=== PATIENT | female | born 1955 | race Caucasian/White ===

== ENCOUNTER 2017-05-17 07:04 | Emergency (ER) | payer BC ==
[2017-05-17 07:25] VITALS: BP 124/50
--- NOTE | 2017-05-17 10:49 | UC ---
Ayo Nicole Nikita, scribed for Dayanara Romo DO on 05/17/17 at 0739 . Ear Complaint HPI - HPI Summary HPI Summary: This patient is a 62 year old F presenting to [facility] with a chief complaint of R ear pain since early this morning. The CC is described as sometimes sharp, feels like somethings in there, and non-radiating. The patient rates the pain 7/10 in severity. Symptoms aggravated by nothing. Symptoms alleviated by nothing. Patient reports intermittent sore throat, sinus congestion/bejarano/ pain since 2 days ago. Patient denies fever, chills, sweating, SOB, coughing, and abdominal pain. - History of Current Complaint Chief Complaint: UCEar Stated Complaint: EAR PAIN Time Seen by Provider: 05/17/17 07:14 Hx Obtained From: Patient Onset/Duration: Sudden Onset - Early this morning, Lasting Hours, Still Present Severity Initially: Moderate Severity Currently: Moderate Pain Intensity: 7 Pain Scale Used: 0-10 Numeric Aggravating Factors: Nothing Alleviating Factors: Nothing Associated Signs/Symptoms: Positive: URI Symptoms. Negative: Discharge, Hearing Loss, Foreign Body Sensation, Swelling @ - Allergies/Home Medications Allergies/Adverse Reactions: Allergies Allergy/AdvReac Type Severity Reaction Status Date / Time Penicillins Allergy Severe See Comment Verified 05/17/17 07:18 PMH/Surg Hx/FS Hx/Imm Hx Endocrine History: Diabetes Cardiovascular History: Hypertension Respiratory History: Asthma - Surgical History Surgical History: None Surgery Procedure, Year, and Place: TUBALIGATION. GALLBLADDER - Family History Known Family History: Positive: Unknown - Parents young. To her knowledge, no htn, dm, heart dz. - Social History Lives: With Family Alcohol Use: Occasionally Substance Use Type: None Smoking Status (MU): Never Smoked Tobacco Review of Systems Constitutional: Other - Denies fever, chills, sweating Skin: Negative Eyes: Negative ENT: Sore Throat, Ear Ache Respiratory: Other - Denies SOB, coughing Cardiovascular: Negative Gastrointestinal: Other - Denies abdominal pain Neurological: Headache - sinus All Other Systems Reviewed And Are Negative: Yes Physical Exam Triage Information Reviewed: Yes Vital Signs: Initial Vital Signs Temp 96.8 F 05/17/17 07:22 Pulse 70 05/17/17 07:22 Resp 16 05/17/17 07:22 BP 124/50 05/17/17 07:22 Pulse Ox 97 05/17/17 07:22 - Additional Comments Appearance: Well-Appearing, No Pain Distress, Well-Nourished Eyes: conjunctiva clear, negative: discharge. pos allergic shiners ENT: TMs erythematous and bulging on R side. Pharyngeal erythema. Maxillary sinus tenderness bilaterally Neck: Normal, Supple Respiratory/Lung Sounds: Lungs clear, Normal breath sounds, No respiratory distress, No accessory muscle use Cardiovascular: RRR, No murmur Musculoskeletal: Normal Neurological: Alert, muscle tone normal Psychiatric: Normal, age appropriate behavior Skin: Normal, other -- Warm, Dry, Normal color Ear Complaint Course/Dx - Course Course Of Treatment: This patient is a 62 year old F presenting to [facility] with a chief complaint of R ear pain since early this morning. The CC is described as sometimes sharp, feels like somethings in there, and non-radiating. The patient rates the pain 7/10 in severity. Symptoms aggravated by nothing. Symptoms alleviated by nothing. Patient reports intermittent sore throat since 2 days ago. Patient denies fever, chills, sweating, SOB, coughing, and abdominal pain. Medications reviewed this visit. In the course, pt was advised to wait a few days before deciding to take antibiotics. The pt will be discharged. Pt is agreeable with this plan. pt noted to have elevated bp, likely d/t pt's condition - Differential Dx/Diagnosis Differential Diagnosis/HQI/PQRI: Cerumen Impaction, Otitis Externa, Otitis Media , Pharyngitis, URI, Other - sinusitis Provider Diagnoses: Sinusitis and otitis media. ELEVATED BP WITHOUT DX OF HTN Discharge - Discharge Plan Condition: Stable Disposition: HOME Prescriptions: Cefdinir [Cefdinir 300 MG CAP] 300 mg PO BID #20 cap Patient Education Materials: Sinusitis (ED), Otitis Media (ED) Referrals: Hakeem Brewster DO [Primary Care Provider] - If Needed Additional Instructions: TRY USING THE NETTI POT IN THE MORNINGS DISCUSSED. YOU MUST ALWAYS USE CLEAN WATER. REMEMBER, POSTURE IS AN IMPORTANT FACTOR IN SINUS DRAINAGE. MOVE YOUR NECK, BREATHE. ANTIBIOTICS ARE NOT CURRENTLY INDICATED FOR YOUR CONDITION. hOWEVER, IF YOUR SYMPTOMS WORSEN OR PERSIST FOR OVER THE NEXT 1-2 DAYS, YOU CAN TAKE THE FOLLOWING MEDICATION: CEPHALOSPORINS: An antibiotic of the cephalosporin class has been prescribed. This type of antibiotic covers a wide variety of infections, including those of the skin, lungs, middle ear, and urinary tract. This antibiotic is somewhat similar to the penicillin family. In rare cases , a person who is allergic to penicillin will also be allergic to this medication. If you have had a severe allergic reaction to penicillin, and have not taken this antibiotic since that time, notify your doctor. Antibiotics which cover many germs ("broad spectrum" antibiotics) are more likely to cause diarrhea or "yeast" infections. Women prone to vaginal yeast problems may suffer an attack after taking this antibiotic. In infants, oral thrush (white spots "stuck" on the cheek) or yeast diaper rash may result. See your doctor if these problems occur. Call the doctor at once if you develop hives, itching, shortness of breath , or lightheadedness. ANYTIME YOU TAKE AN ANTIBIOTIC, IT IS IMPORTANT TO REPLENISH THE BODY'S SUPPLY OF "GOOD BACTERIA." YOU CAN GET GOOD BACTERIA FROM HIGH QUALITY CULTURED FOODS SUCH LOCAL YOGURT, SOUR KRAUT, NICOLAS XAVI, NATURALLY FERMENTED PICKLES AND PROBIOTIC DRINKS. YOU CAN ALSO GET GOOD BACTERIA FROM A PROBIOTIC SUPPLEMENT. The documentation as recorded by the Ayo potter Nikita accurately reflects the service I personally performed and the decisions made by me, Dayanara Romo DO.
== END 2017-05-17 07:55 | disposition home or self-care (01) ==
LOC: UCEAST 07:04
DX: J32.9 Chronic sinusitis, unspecified (principal); H66.91 Otitis media, unspecified, right ear; I10 Essential (primary) hypertension; E11.9 Type 2 diabetes mellitus without complications; J45.909 Unspecified asthma, uncomplicated; Z90.49 Acquired absence of other specified parts of digestive tract; Z88.0 Allergy status to penicillin
CPT/HCPCS: 99212; G0463

== ENCOUNTER 2018-07-17 13:23 | Emergency (ER) | payer BC, OTHER ==
--- OUTSIDE RECORDS SUMMARY | 2018-07-17 13:36 | XMS REPORT | Continuity of Care Document ---
:1955 External Reference #:[id number] Author Name Boogie Dutta M.D. Address [address] [place] [address] [address] [place] [address] Care Team Providers Name Role Phone HCP given Primary Care Physician Unavailable Payers Type Date Identification Numbers Payment Provider Subscriber Effective: Policy Number: [id number] Wilner Kulkarniolph 2016 Ind/Ppo/Hmo/Pos PayID: [id number] [address] [address] DONTAE Chakraborty [id number] Effective: Policy Number: [employer] Ind/Ppo/Hmo/Pos Karo Kulkarniolph 2015 [id number] Expires: 2016 PayID: [id number] [address] [address] DONTAE Chakraborty [phone] Advance Directives Description No Information Available Problems Date Description Provider Status Onset: 01/14/2006 Obesity Iona Tena MD Active Onset: 01/14/2006 Family history of malignant neoplasm of Iona Tena MD Active breast Onset: 01/14/2006 Female climacteric state Iona Tena MD Active Onset: 07/05/2010 Essential hypertension Iona Tena MD Active Onset: 03/21/2011 Type 2 diabetes mellitus Iona Tena MD Active Onset: 03/21/2011 Benign essential hypertension Iona Tena MD Active Onset: 03/21/2011 Morbid obesity Iona Tena MD Active Onset: 10/03/2011 Intrinsic asthma without status Iona Tena MD Active asthmaticus Onset: 10/03/2011 Abnormal vaginal Papanicolaou smear Ioan Tena MD Active Onset: 07/07/2015 Skin sensation disturbance Hakeem Brewster D.O. Active Onset: 11/10/2015 Gastroesophageal reflux disease Hakeem Brewster D.O. Active Onset: 02/26/2016 Mixed hyperlipidemia Hakeem Brewster D.O. Active Onset: 11/28/2016 Insomnia Hakeem Brewster D.O. Active Onset: 09/26/2017 Recurrent major depressive episodes Hakeem Brewster D.O. Active Onset: 09/26/2017 Generalized anxiety disorder Hakeem Brewster D.O. Active Onset: 06/30/2018 Low back pain Sparkle Guerrero PA Active Family History Date Family Member(s) Problem(s) Comments General Asthma General High Blood Pressure General Mental Illness General Obesity : (age 48 Father due to Auto Years) Accident : (age 48 Mother due to Cancer metastatic breast ca Years) Number of Children 3 : (age 16 First Son due to Accident Years) First Son Iker Thrasher First Son First Daughter Oralia Armijo First Daughter Second Daughter Tiffanie Gallo Second Daughter Number of Siblings Siblings: 6 . 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 Uses sunscreen Seat Belt/Car Seat Always uses a seat belt Guns in Home There are not guns in the home Currently Active The patient is currently sexually active Contraceptive Methods Does not currently use any method of control _ postmenopausal Age 1st [place] First intercourse was at age 17 Allergies, Adverse Reactions, Alerts Date Description Reaction Status Severity Comments 12/16/2005 Penicillin Active Medications Medication Date Status Form Strength Qnty SIG Indications Ordering Provider Clotrimazole 06/30 Active Cream 2% 42gm apply B37.3 Tra surinder Granados M.D. affected areas twice a day as needed Cyclobenzaprine 03/10 Active Tablets 5mg 30tab Take 1 Sopchak, HCL s Tablet By Hakeem, Mouth D.O. Every Night For Back Pain. Will Make You Drowsy Bupropion HCL 11/24 Active Tablets 100mg 90tab 1 by mouth F33.9 Sopchak , s daily Hakeem, D.O. Fluoxetine HCL 09/26 Active Capsules 20mg 90cap take 1 Sopchak, s capsule Hakeem, every D.O. morning Tizanidine HCL 09/03 Active Capsules 4mg 90cap 1 tab by M54.17 Silcoff, s mouth Boogie, three M.D. times a day as needed spasms [facility] D3 01/01 Active Capsules 5000Unit 90cap Take 1 Sopchak, s Tablet By Hakeem, Mouth D.O. Every Day Or Take 7 Tablet By Mouth Once A Week Trazodone HCL 11/28 Active Tablets 50mg 90tab Take 1 G47.00 Sopchak, s Tablet By Hakeem, Mouth D.O. Daily AT Bedtime For Trouble Sleeping Vitamin B12 05/27 Active Tablets 100mcg 1 by mouth every day [facility] B Complex 02/06 Active Tablets 90tab Take 1 Sopchak, Plus C s Tablet Hakeem, Twice A D.O. Day Buspirone HCL 08/21 Active Tablets 7.5mg 180ta take 1 F43.22 , bs tablet Hakeem, twice a D.O. day Vitamin D-3 07/10 Active Tablets 5000Unit 90tab 1 tab by Sopchak, s mouth Hakeem, every day D.O. or 7 tabs once a week Magox 07/10 Active Tablet 400Tablet 360ta Take 2 Sopk, bs Tablets AT Hakeem, Bedtime D.O. May Increase To 5 Tablets as Directed Pravastatin 01/25 Active Tablets 20mg 90tab Take 1 Sopchak, Sodium s Tablet By Hakeem, Mouth D.O. Every Day For Cholestero l Enalapril Maleate 10/25 Active Tablets 5mg 180ta Take 1/2 I10 Sopchak, bs Tablet By Hakeem, Mouth D.O. Every Day Hydrochlorothiazi 11/11 Active Tablets 25mg 90tab Take 1 Ney s Tablet By Hakeem, Mouth D.O. Every Day Aspir-[address] 81mg OTC Take One Darinel, / Tab Daily Frederic Monson Singulair Active Tablets 10mg 90tab 1 by mouth Ney, s every day Hakeem, D.O. Bupropion HCL 09/26 Hx Tablets 75mg 90tab 1 by mouth F33.9 Sopdameon, s every day Hakeem, - for mood D.O. 11/24 and appetite Cipro HC 05/29 Hx Suspension 0.2-1% 10ml 3 drops in H60.91 Tra right ear Boogie, - twice a M.D. 09/02 day x7 days Claritin-D 05/29 Hx Tablets ER 5-120mg 60tab 1 by mouth H66.91 Tra, 12HR s twice Boogie, - daily as M.D. 09/02 needed Moxifloxacin HCL 05/21 Hx Tablets 400mg 10tab 1 tab by H66.91 Tra, s mouth Boogie, - daily x10 M.D. Cefdinir 05/17 Hx Capsules 300mg one caps twice - daily x 10 Cyclobenzaprine 04/30 Hx Tablets 5mg 30tab 1 tab by M54.17 Ney, s mouth Hakeem, - every D.O. 09/03 night for back pain. will make you drowsy Tramadol HCL 11/28 Hx Tablets 50mg 120ta 1 by mouth M19.012 don bs every 6 Boogie, - hours as M.D. 09/26 needed for pain Fluoxetine HCL 10/30 Hx Capsules 10mg 90cap Take 1 joyce s Capsule Hakeem, - Every Day D.O. 09/26 Azithromycin 10/28 Hx Tablets 500mg 3tabs take 1 J01.00 joyce tablet by Hakeem, - mouth D.O. 10/31 daily for 3 days for infection Fluticasone 10/24 Hx Suspension 50mcg/Act 48uni 2 sprays J01.00 Sopchak , ts into each Hakeem, - nostril D.O. 11/27 every day for nasal congestion . [place] allergies. rinse mouth post Afrin Sinus 10/24 Hx Solution 0.05% 15ml inhale 2 J01.00 Sopchak, sprays Hakeem, - into D.O. 10/27 nostril times per day every 10 to 12 hours as needed for stuffy nose for 3 days only! Neti Pot Kit 10/24 Hx Kit 2300-700m 1unit use as J01.00 Sopchak, Sinus Wash/Clear g s directed Hakeem, View Kettle - D.O. 11/27 Hydrocodone 10/24 Hx Suer 10-8mg/5M 118ml take 5 R05 Sopchak, Polistirex/Chlorp L milliliter Hakeem, heniramine - s by mouth D.O. Polistirex 11/27 every hours as needed for cough Tessalon Perles 10/21 Hx Capsules 100mg 30cap take 1 Sopchak s capsule by Hakeem, - mouth 3 D.O. 10/31 times per day as needed for cough Hydrocodone-Aceta 03/07 Hx Tablets 5-325mg 30tab 1 tabletq M54.5 Sopchak, minophen s 4 hours as Hakeem, - needed for D.O. 04/07 severe 2016 pain Flunisolide 11/09 Hx Solution 25mcg/Act 25ml 2 sprays (0.025%) twice a Hakeem, - day D.O. 02/24 Fluoxetine HCL 08/21 Hx Capsules 10mg 90cap 1 by mouth F43.22 Ney, s every day Hakeem, - D.O. 08/21 Omeprazole 02/[address] 20mg 90cap 1 by mouth K21.9 Darinel, /2014 s every day Iona SÁNCHEZ - 11/09 Lamisil At 01/11 Hx Cream 1% 45gm use 110.4 Darinel Athletes Foot between Iona SÁNCHEZ - affected 11/08 toes twice a day for up to 2 weeks. spray shoes. change footweasr post excercise Fluticasone 02/01 Hx Suspension 50mcg/Act 3unit 2 sprays Darinel s into each Iona SÁNCHEZ - nostril qd 11/09 for nasal /2016 congestion . [place] allergies. rinse mouth post Physical Therapy 01/25 Hx for upward 780.4 Darinel and Iona SÁNCHEZ - lateral 10/25 gaze /2014 vertigo. Advair Diskus 11/11 Hx Aerosol 100-50mcg 1unit use one Darinel /Dose s inhalation Iona SÁNCHEZ - two times 10/25 a day /2014 instead of the 250 dose. if need ventolin > 2x/week or 2 nites/mo let me know. Fluoxetine HCL 05/25 Hx Capsules 20mg 90cap take 1 309.28 Ney s capsule in Hakeem, - the D.O. 02/01 morning. if side effects stop and let me know. Trazodone HCL 05/25 Hx Tablets 50mg 90tab take 09/02 309.28 Ney s tablet to Hakeem, - one tab by D.O. 02/01 mouth once daily 30-60 minutes before bedtime. 780.52 HCTZ 01/13/2013 Hx Tablets 25mg 90tabs 1 po qam for Darinel, - high blood Iona SÁNCHEZ 11/11/2013 pressure Advair Diskus 01/05/2013 Hx Aerosol 250-50mcg 1units inhale 1 puff Darinel - /Dose bid Iona SÁNCHEZ 11/11/2013 Prednisone 08/31/2012 Hx Tablets Tapering 30tabs Over 2 Weeks 493. Darinel, - Dose as Prescribed 10 Iona SÁNCHEZ 09/14/2012 By Heather. See Note prn Benzonatate 08/27/2012 Hx Capsules 200mg 21caps 1 po tid, prn Tra, - Boogie 11/11/2013 Frederic Lisinopril/Hydroch 05/07/2012 Hx Tablets 20-25mg 90tabs 1 tab po qam 401. Silcoff, lorothiazide - 1 Boogie 01/13/2013 Frederic Hydrochlorothiazid 09/19/2011 Hx Tablets 25mg 30tabs take 1 tablet 401. Darinel e - every morning 1 Iona SÁNCHEZ 05/07/2012 for high blood pressure Azithromycin 03/21/2011 Hx Tablets 250mg 6tabs 2 tab po on 461. Darinel, - day one then 9 Iona SÁNCHEZ 03/26/2011 one tab daily x 4more days prn for your sinus infection Fluticasone 03/21/2011 Hx Suspension 50mcg/Act 1units 2 sprays into 461. Mehrdad Tena - each nostril 9 Iona SÁNCHEZ 11/11/2013 qd for nasal congestion. [place] allergies. rinse mouth post. prn BP Monitor 03/21/2011 Hx 1units monitor daily I10 Darinel, - when using Iona SÁNCHEZ 05/26/2018 meds like decongestants which can affect your bp. else monitor monthly. goal is < 130/80. Make Sure You Are 11/15/2010 Hx through diet M85. Darinel, Getting 3 Servings - or supplement 9 Iona SÁNCHEZ Of Calcium 05/26/2018 or diet 500mg tid, vitamin d 800 iu/d Physical Therpay 06/05/2010 Hx 6Weeks for rt 719. Darinel, - bicipital 42 Iona SÁNCHEZ 10/03/2011 tnedonitisand rcs.2 to 3 x/week . help eval and treat Skelaxin 06/05/2010 Hx Tablets 800mg 90tabs 1 po tid prn 719. Darinel, - for your 42 Iona SÁNCHEZ 07/05/2010 muscle spasm like pain. Lidoderm 06/05/2010 Hx Patches 5% 30units apply to 719. Darinel, - intact skin in 42 Iona SÁNCHEZ 07/05/2010 region of pain. up to 3 patches , once for up to 12 hours within 24 hours Voltaren 06/05/2010 Hx Gel 1% 45gm apply to arm 719. Darinel, - pain .wait 10 42 Iona SÁNCHEZ 07/05/2010 min before getting dressed to prevent rubbing off. samples. Hydrochlorothiazid 06/05/2010 Hx Tablets 25mg 90tabs take 1/2 401. Darinel, e - tablet by 1 Iona SÁNCHEZ 03/20/2011 mouth every morning for high blood pressure. increase to full tablet if bp still >135/85 in week Amitriptyline HCL 03/29/2010 Hx Tablets 25mg 30tabs 1 tab po qhs Darinel, - prn for sleep Iona SÁNCHEZ 01/05/2013 Physical Therpay 03/29/2010 Hx 6Weeks for lt ankle 719. Darinel, - sprain 2 to 3 47 Iona SÁNCHEZ 10/03/2011 x/week Clarithromycin 03/27/2009 Hx Tablets 250mg 20tabs 1 po bid 462 Irving Izquierdo 04/06/2009 Frederic Bauer Prednisone 02/21/2009 Hx Tablets 20mg on tapering 493. Darinel, - dosing as per 10 Iona SÁNCHEZ 03/29/2010 jaimie. Mucinex DM 02/21/2009 Hx Tablets ER 30-600ER 50tabs one tab po bid 786. Darinel, - 12HR prn cough 2 Iona SÁNCHEZ 06/05/2010 Tessalon Perles 02/21/2009 Hx Capsules 100mg 100caps 1 to 2 tab po 786. Darinel, - tid prn cough 2 Iona SÁNCHEZ 06/05/2010 Tylenol/Codeine #3 02/21/2009 Hx Tablets #3 30tabs 1/2 to 2 tab 786. Darinel, - po in hs for 2 Iona SÁNCHEZ 06/04/2010 your cough\\ caution re sedation and constipation Chlor-Trimeton 02/21/2009 Hx Tablets 4mg can use in hs 786. Darinel, - for congestion 2 Iona SÁNCHEZ 03/29/2010 prn.as directed. otc med. caution re sedation. mucinex is ok.try nettipot/steam Septra DS 02/21/2009 Hx Tablets 800-160 20tabs 1 tab po bid 786. Darinel , - for 10 days 2 Iona SÁNCHEZ 06/04/2010 Prednisone 10/25/2008 Hx Tablets 20mg 10tabs 2 tab po daily 493. Darinel , - x 5 days.start 10 Iona SÁNCHEZ 10/30/2008 if asthma not continuing to improve by tomorrow. if no better in 2 days alert Fosamax 10/25/2008 Hx Tablets 35mg 12tabs 1 tab po q 733. Darinel, - week take with 90 Iona SÁNCHEZ 03/20/2011 8 ounces water in am. stay upright and npo x 30 min post. Please Reduce Work 10/25/2008 Hx continue 493. Darinel Hours To 2O To 25 - reduction 10 Iona SÁNCHEZ Hours/Week 01/22/2010 until november 07 Advair Diskus 10/11/2008 Hx Misc 500/50 3units one 493. Darinel, - inhalations 10 Iona SÁNCHEZ 07/18/2010 bid.instead of the 250/50.use until asthma free for a week then can reduce to 250/50 as discussed Zithromax 09/02/2008 Hx Tablets 250mg 1Pack two tablets po 493. Mark, - day 1 then 1 10 Ghislaine SÁNCHEZ 09/07/2008 tablet po day 2-5 Tylenol/Codeine #3 09/02/2008 Hx Tablets #3 40tabs one tablet po 493. Mark, - q4h prn for 10 Ghislaine SÁNCHEZ 02/21/2009 cough suppression and chest wall pain Prednisone 08/30/2008 Hx Tablets 10mg 14tabs takes prn Fito Tena MD 10/11/2008 Flovent HFA 08/30/2008 Hx Aerosol 220mcg/Ac 1Inh 2 Inhalations 493. Fito Tena t Twice Daily 10 Iona SÁNCHEZ 10/25/2008 Rinse Mouth Post. Prednisone 08/30/2008 Hx Tablets 20mg 10tabs 2 Tab PO Daily 493. Darinel , - X 5 Days.Start 10 Iona SÁNCHEZ 03/29/2010 If Asthma Not Continuing To Improve By Tomorrow. If No Better In 2 Days Alert MD Castaneda Diskus 05/28/2008 Hx Misc 250/50 1Disc 1 puff Bid 493. Jakob - 10 er, 10/11/2008 MD Alessio Bactrim DS 05/28/2008 Hx Tablets 800-160 20tabs 1 bid Until 465. Irving - Gone 9 A. 06/07/2008 Damien, nessa generic M.Taurus Ecotrin Low 04/02/[address] 81mg Ec one po daily 401. Darinel, Strength - 1 Iona SÁNCHEZ 08/30/2008 Zithromax Z-Vern 12/14/2006 Hx Tablets 250mg take as klepack - directed 12/21/2006 #one pack Prednisone 09/03/2006 Hx Tablets 20mg 14tabs 2 po qd x 7 klepack - days 12/21/2006 Advair Diskus 08/29/2006 Hx Inhaler 500McG;50 1units 1 puff bid 493. damien - McG 10 04/02/2007 Advair Diskus 05/15/2006 Hx Inhaler 250McG;50 1 puff bid. 493. Darinel, - McG rinse mouth 10 Iona SÁNCHEZ 04/02/2007 post. alert MD if need breakthrough inhaler > 2x/week. Zyrtec 05/15/2006 Hx Tablets 10mg 90tabs 1 po qd 477. Darinel, - 9 Iona SÁNCHEZ 04/02/2007 Tylenol W/ Codeine 05/15/2006 Hx Tablets 300mg;30 50tabs 1/2 to 1 tab 786. Darinel, #3 - mg po hs prn pain 2 Iona SÁNCHEZ 04/02/2007 refractory cough.caution re sedation and constipation.d o not use in asthma flare. Albuterol 04/16/2006 Hx Aerosol 90mcg/Dos 1units 2 Puffs Q 4H 493. Darinel Inhalation - e prn. Call MD 10 Iona SÁNCHEZ 03/20/2011 If > 2X Week Need. Prilosec 04/04/2006 Hx Capsules 20mg 90caps 1 tab po 493. Darinel, - daily. coleta 10 Iona SÁNCHEZ 04/02/2007 to decide if shell continue as asx and used for cough sec to possible reflux. Advair Diskus 04/03/2006 Hx Inhaler 500/50 1units 1 puff bid. 493. Darinel - rinse mouth 10 Iona SÁNCHEZ 05/15/2006 post. alert MD if need breakthrough inhaler > 2x/week. Singulair 04/03/2006 Hx Tablets 10mg 30tabs 1 po in 493. Darinel, - evening for 10 Iona SÁNCHEZ 05/15/2006 asthma Protonix 04/03/2006 Hx Tablets 40mg 90tabs 1 po qd 493. Darinel, - 10 Iona SÁNCHEZ 04/04/2006 Margie 04/03/2006 Hx Tablets 180mg 90tabs 1 tab po qd 477. Darinel, - prn allergy 9 Iona SÁNCHEZ 05/15/2006 season Albuterol 2.5 MG 04/03/2006 Hx 56units use q6h with Lynsey. Darinel Nebules - nebulizer 10 Iona SÁNCHEZ 06/05/2010 Nebulizer Mask And 04/03/2006 Hx Adult-Dis 1units use with Darinel Tubing - posable albuterol neb Iona SÁNCHEZ 04/02/2007 q6h prn Spacer For Mdi 04/03/2006 Hx 1units x 1 use with Darinel - advair. try Iona SÁNCHEZ 10/25/2013 using post nebulizer for max efficacy Prednisone 03/27/2006 Hx Tablets 20mg 10tabs 2 tab po daily 786. Darinel , - x 5 days 09 Iona SÁNCHEZ 05/15/2006 Z-Vern 03/27/2006 Hx Tablets 250mg 1tabs 2 tab day one 786. Darinel, - then 1 tab 09 Iona SÁNCHEZ 05/15/2006 daily x 4 more days. Serevent Diskus 01/14/2006 Hx Powder 50mcg 1units 1 inh bid. 493. Darinel Inhalation - alert MD if 10 Iona SÁNCHEZ 04/03/2006 ventolin > 2x/wk alert . Nasacort Aq 12/19/2005 Hx Aerosol 55McG/Act 1units 2 Squirts 477. Darinel Intranasal [place] - uation Intranasally 9 Iona SÁNCHEZ 04/02/2007 Daiy. Rinse Mouth Post Flovent 12/19/2005 Hx Aerosol 220mcg/In IInh inc to 2 inh 493. Darinel - halation bid. rinse 10 Iona SÁNCHEZ 04/03/2006 mouth post. if need ventolin> 2x/wk call . Flovent 12/18/2005 Hx Aerosol 110mcg/In 2 puffs bid 493. Darinel, - halation 10 Iona SÁNCHEZ 05/15/2006 Zyrtec 12/18/2005 Hx Tablets 10mg 30tabs 1 po qd 477. Darinel, - 9 Iona SÁNCHEZ 04/03/2006 K-Dur 20 12/16/2005 Hx Tablets 1500mg 30tabs 1 tab po daily 401. Darinel , - 1 Iona SÁNCHEZ 04/02/2007 276.8 Singulair 12/16/2005 - Hx Tablets 10mg 30tabs 1 po in 493.10 Darinel 01/14/2006 evening for Iona SÁNCHEZ asthma Niaspan 12/16/2005 - Hx Tablets 1000mg 60tabs 2 tab po 272.1 Darinel Extended 04/02/2007 daily Iona SÁNCHEZ Release Allergy Shots - Hx as per 493.10 Unknown 11/27/2016 heather. 477.9 Zyrtec - Hx Tablets 10mg OTC Take 1 Tablet Unknown 03/29/2010 Evryday For Allergies Peak Flow - Hx 1units please monitor 493.1 Unknown Monitor 11/11/2013 your flow rates 0 for a good beaseline and do when you are having symtpoms of cough/sob. Ibuprofen - Hx Tablets 600mg 30tabs 1 po tid Unknown 06/05/2010 Nexium - Hx Capsules DR 40mg 90caps 1 po qd as 786.2 Unknown 11/11/2013 prescribed by ent Medications Administered in Office Medication Date Status Form Strength Qnty SIG Indications Ordering Provider injection, Administered Injection sonia Brewster, 10 mg 017 Parisa Palacio Immunizations CPT Code Status Date Vaccine Lot # [id number] Given 04/02/2018 Shingrix Zoster (Shingles) Vaccine (HZV) [id number] Recomb,Subnit,Adjuvanted 63523 Given 11/24/2017 Shingrix Zoster (Shingles) Vaccine (HZV) [id number] Recomb,Subnit,Adjuvanted 08740 Given 08/01/2017 Influenza Virus Vaccine, Quadrivalent, Split, Preservative Free 36117 Given 03/21/2011 Pneumococcal Immunization [id number] 86496 Given 03/29/2010 Adacel or Boostrix, TDaP [id number] 36748 Given 01/14/2006 Td Immunization Td-150 Vital Signs Date Vital Result Comment 06/30/2018 10:24am BP Systolic 126 mmHg BP Diastolic 80 mmHg Height 58 inches 4'10" 05/26/2018 11:27am BP Systolic 140 mmHg BP Diastolic 78 mmHg 11/24/2017 3:41pm BP Systolic 142 mmHg BP Diastolic 80 mmHg Weight 190.00 lb per pt. 09/26/2017 10:00am BP Systolic 136 mmHg BP Diastolic 70 mmHg 09/03/2017 10:43am BP Systolic 158 mmHg BP Diastolic 74 mmHg 05/29/2017 3:28pm BP Systolic 134 mmHg BP Diastolic 75 mmHg Heart Rate 75 /min Body Temperature 97.7 F 05/21/2017 11:11am BP Systolic 118 mmHg BP Diastolic 80 mmHg Body Temperature 98.1 F 04/08/2017 11:06am BP Systolic 148 mmHg BP Diastolic 82 mmHg 01/31/2017 3:37pm BP Systolic 138 mmHg BP Diastolic 86 mmHg Height 58 inches 4'10" Weight 169.00 lb BMI (Body Mass Index) 35.3 kg/m2 11/28/2016 8:45am BP Systolic 138 mmHg BP Diastolic 76 mmHg 10/24/2016 3:14pm BP Systolic 130 mmHg BP Diastolic 68 mmHg Body Temperature 98.2 F 08/29/2016 8:52am BP Systolic 130 mmHg BP Diastolic 80 mmHg 05/28/2016 10:09am BP Systolic 140 mmHg BP Diastolic 84 mmHg Heart Rate 60 /min Weight 159.00 lb 03/07/2016 5:16pm BP Systolic 132 mmHg BP Diastolic 80 mmHg Body Temperature 98.8 F 02/26/2016 10:38am BP Systolic 153 mmHg BP Diastolic 78 mmHg BP Systolic Recheck 125 mmHg recheck ra BP Diastolic Recheck 68 mmHg recheck ra Heart Rate 63 /min Height 58.5 inches 4'10.50" Weight 163.00 lb with sandals BMI (Body Mass Index) 33.5 kg/m2 11/10/2015 11:07am BP Systolic 142 mmHg BP Diastolic 88 mmHg BP Systolic Recheck 128 mmHg reheck ra BP Diastolic Recheck 75 mmHg reheck ra Height 58.5 inches 4'10.50" Weight 182.00 lb BMI (Body Mass Index) 37.4 kg/m2 08/21/2015 2:10pm BP Systolic 132 mmHg BP Diastolic 90 mmHg 07/07/2015 10:29am BP Systolic 150 mmHg BP Diastolic 78 mmHg Weight 200.00 lb 01/11/2015 10:04am BP Systolic 142 mmHg BP Diastolic 76 mmHg 10/25/2014 11:31am BP Systolic 150 mmHg 138/88 both arms! BP Diastolic 90 mmHg 138/88 both arms! 02/01/2014 9:34am BP Systolic 150 mmHg BP Diastolic 80 mmHg Height 58.50 inches 4'10.50" Weight 188.00 lb BMI (Body Mass Index) 38.6 kg/m2 01/25/2014 11:38am BP Systolic 140 mmHg BP Diastolic 82 mmHg 11/11/2013 1:56pm BP Systolic 146 mmHg lt 158/92, rt148/90 BP Diastolic 90 mmHg lt 158/92, rt148/90 07/07/2013 10:38am BP Systolic 150 mmHg BP Diastolic 88 mmHg 05/25/2013 11:19am BP Systolic 170 mmHg my bp 150 sys, 148/88 BP Diastolic 96 mmHg my bp 150 sys, 148/88 01/28/2013 1:59pm BP Systolic 140 mmHg BP Diastolic 84 mmHg 05/07/2012 10:43am BP Systolic 150 mmHg BP Diastolic 81 mmHg BP Systolic Recheck 151 mmHg BP Diastolic Recheck 79 mmHg Heart Rate 82 /min 78 04/16/2012 4:33pm BP Systolic 167 mmHg R arm BP Diastolic 96 mmHg R arm BP Systolic Recheck 167 mmHg BP Diastolic Recheck 106 mmHg Heart Rate 84 /min 77 10/03/2011 4:13pm BP Systolic 116 mmHg BP Diastolic 80 mmHg Height 59 inches 4'11" 07/23/2011 11:15am BP Systolic 140 mmHg BP Diastolic 86 mmHg Weight 175.00 lb 03/21/2011 10:06am BP Systolic 140 mmHg BP Diastolic 82 mmHg Body Temperature 98.3 F Height 59 inches 4'11" Weight 179.00 lb BMI (Body Mass Index) 36.1 kg/m2 Last Menstrual Period 0 12/17/2010 3:32pm BP Systolic 142 mmHg BP Diastolic 84 mmHg 11/15/2010 3:28pm BP Systolic 138 mmHg BP Diastolic 82 mmHg Height 58.50 inches 4'10.50" Weight 207.00 lb BMI (Body Mass Index) 42.5 kg/m2 07/05/2010 11:56am BP Systolic 130 mmHg office bp--pts machine:146/102 BP Diastolic 88 mmHg office bp--pts machine:146/102 Weight 215.00 lb her office weight. refused our weight. 06/11/2010 4:41pm BP Systolic 150 mmHg BP Diastolic 100 mmHg 06/05/2010 11:28am BP Systolic 134 mmHg 140/100 bpth arms. hr in th 70's BP Diastolic 96 mmHg 140/100 bpth arms. hr in th 70's 05/17/2010 2:19pm BP Systolic 140 mmHg BP Diastolic 90 mmHg 04/06/2010 3:45pm BP Systolic 160 mmHg BP Diastolic 90 mmHg 03/29/2010 9:29am BP Systolic 172 mmHg 152/80 rt arm large cuff. 157 palption BP Diastolic 102 mmHg 152/80 rt arm large cuff. 157 palption Height 59.5 inches 4'11.50" 03/27/2009 6:00pm BP Systolic 128 mmHg BP Diastolic 84 mmHg Body Temperature 98.4 F 02/28/2009 11:18am BP Systolic 132 mmHg BP Diastolic 76 mmHg 02/21/2009 9:46am BP Systolic 136 mmHg BP Diastolic 82 mmHg Body Temperature 98.4 F 10/25/2008 10:49am BP Systolic 132 mmHg BP Diastolic 88 mmHg Height 59 inches 4'11" Weight 208.00 lb declined Waist Circumference 44in BMI (Body Mass Index) 42.0 kg/m2 10/11/2008 11:02am BP Systolic 140 mmHg BP Diastolic 82 mmHg 09/02/2008 11:09am BP Systolic 124 mmHg BP Diastolic 82 mmHg Heart Rate 96 /min Respiratory Rate 24 /min Body Temperature 97.8 F Height 59 inches 4'11" 08/30/2008 9:41am BP Systolic 138 mmHg BP Diastolic 80 mmHg Height 59 inches 4'11" Last Menstrual Period [id number] 05/28/2008 10:09am BP Systolic 156 mmHg BP Diastolic 80 mmHg Heart Rate 80 /min Respiratory Rate 16 /min Height 59 inches 4'11" 04/02/2007 9:25am BP Systolic 136 mmHg BP Diastolic 86 mmHg Height 59 inches 4'11" 12/04/2006 4:09pm BP Systolic 120 mmHg BP Diastolic 72 mmHg Body Temperature 99.3 F Height 59 inches 4'11" 08/29/2006 11:42am BP Systolic 122 mmHg BP Diastolic 84 mmHg Body Temperature 98.3 F Height 59 inches 4'11" 05/15/2006 4:01pm BP Systolic 136 mmHg BP Diastolic 80 mmHg Body Temperature 97.7 F Height 59 inches 4'11" 04/03/2006 2:46pm BP Systolic 128 mmHg BP Diastolic 76 mmHg Body Temperature 98.1 F Height 59 inches 4'11" 04/03/2006 2:43pm Height 59 inches 4'11" 03/27/2006 5:38pm BP Systolic 128 mmHg BP Diastolic 80 mmHg Heart Rate 90 /min Respiratory Rate 18 /min Body Temperature 98.3 F Height 59 inches 4'11" 01/14/2006 9:04am BP Systolic 130 mmHg BP Diastolic 80 mmHg Body Temperature 98.0 F Height 59 inches 4'11" 12/19/2005 10:43am BP Systolic 120 mmHg BP Diastolic 82 mmHg Height 59 inches 4'11" Results Test Date Facility Test Result H/L Range Note Laboratory test 06/30/2018 [facility] Cytology SEE RESULT 1 finding [phone] BELOW CBC Auto Diff 05/29/2018 [facility] White Blood 6.5 10^3/uL N 3.5- 10.8 [phone] Count Red Blood Count 4.80 10^6/uL N 4.00-5.40 Hemoglobin 14.6 g/dL N 12.0-16.0 Hematocrit 43 % N 35-47 Mean Corpuscular Volume 90 fL N 80-97 Mean Corpuscular Hemoglobin 31 pg N 27-31 Mean Corpuscular HGB Conc 34 g/dL N 31-36 Red Cell Distribution Width 14 % N 10.5-15 Platelet Count 227 10^3/uL N 150-450 Mean Platelet Volume 9.0 um3 N 7.4-10.4 Abs Neutrophils 3.9 10^3/uL N 1.5-7.7 Abs Lymphocytes 1.8 10^3/uL N 1.0-4.8 Abs Monocytes 0.5 10^3/uL N 0-0.8 Abs Eosinophils 0.2 10^3/uL N 0-0.6 Abs Basophils 0.1 10^3/uL N 0-0.2 Abs Nucleated RBC 0 10^3/uL Granulocyte % 59.8 % N 38-83 Lymphocyte % 27.6 % N 25-47 Monocyte % 8.1 % High 0-7 Eosinophil % 2.9 % N 0-6 Basophil % 1.6 % N 0-2 Nucleated Red Blood Cells % 0.5 Comp Metabolic Panel 05/29/2018 [facility] Sodium 140 mmol/L N 135- 145 [phone] Potassium 4.3 mmol/L N 3.5-5.0 Chloride 103 mmol/L N 101-111 Co2 Carbon Dioxide 30 mmol/L N 22-32 Anion Gap 7 mmol/L N 2-11 Glucose 115 mg/dL High 70-100 Blood Urea Nitrogen 15 mg/dL N 6-24 Creatinine 0.73 mg/dL N 0.51-0.95 BUN/Creatinine Ratio 20.5 High 8-20 Calcium 9.3 mg/dL N 8.6-10.3 Total Protein 6.5 g/dL N 6.4-8.9 Albumin 4.3 g/dL N 3.2-5.2 Globulin 2.2 g/dL N 2-4 Albumin/Globulin Ratio 2.0 N 1-3 Total Bilirubin 0.60 mg/dL N 0.2-1.0 Alkaline Phosphatase 59 U/L N 34-104 Alt 24 U/L N 7-52 Ast 26 U/L N 13-39 Egfr Non- 81.0 >60 Egfr 98.1 >60 2 Laboratory test 05/29/2018 [facility] Erythrocyte Sed Rate 9 mm/Hr N 0-30 3 finding [phone] C Reactive Protein 2.40 mg/L N <8.01 4 Lipid Profile (Trig/Chol/HDL) 05/29/2018 [facility] Triglycerides 159 mg/dL 5 [phone] Cholesterol 188 mg/dL 6 HDL Cholesterol 63.2 mg/dL 7 LDL Cholesterol 93 mg/dL 8 Laboratory test 05/29/2018 [facility] TSH (Thyroid Stim 2.60 N 0.34- 5.60 9 finding [phone] Horm) mcIU/mL Urine 05/29/2018 [facility] Ur Microalbumin < 15.0 Microalbumin [phone] (mg/L) Random Urine Creatinine 228.09 mg/dL Urine Microalbumin/Creatinine TNP <31 10 Laboratory 05/29/2018 [facility] Vitamin D 60.4 ng/mL High 20-50 11 test finding [phone] Total 25(Oh) Laboratory 05/26/2018 In House Hemoglobin 5.4 test finding A1c Laboratory 09/26/2017 In House Hemoglobin 6.2 test finding A1c Xray 01/31/2017 [facility] Dexa Bone osteopenia of Density Study spine One Or More Sites Axial Skeleton CBC Auto Diff 01/23/2017 [facility] White Blood 5.6 10^3/uL N 3.5- 10.8 [phone] Count Red Blood Count 4.67 10^6/uL N 4.0-5.4 Hemoglobin 14.2 g/dL N 12.0-16.0 Hematocrit 42 % N 35-47 Mean Corpuscular Volume 90 fL N 80-97 Mean Corpuscular Hemoglobin 30 pg N 27-31 Mean Corpuscular HGB Conc 34 g/dL N 31-36 Red Cell Distribution Width 13 % N 10.5-15 Platelet Count 223 10^3/uL N 150-450 Mean Platelet Volume 9 um3 N 7.4-10.4 Abs Neutrophils 2.9 10^3/uL N 1.5-7.7 Abs Lymphocytes 1.9 10^3/uL N 1.0-4.8 Abs Monocytes 0.5 10^3/uL N 0-0.8 Abs Eosinophils 0.2 10^3/uL N 0-0.6 Abs Basophils 0.1 10^3/uL N 0-0.2 Abs Nucleated RBC 0 10^3/uL N Granulocyte % 51.8 % N 38-83 Lymphocyte % 34.1 % N 25-47 Monocyte % 9.3 % High 1-9 Eosinophil % 3.8 % N 0-6 Basophil % 1.0 % N 0-2 Nucleated Red Blood Cells % 0.1 N Comp Metabolic Panel 01/23/2017 [facility] Sodium 139 mmol/L N 133- 145 [phone] Potassium 3.8 mmol/L N 3.5-5.0 Chloride 104 mmol/L N 101-111 Co2 Carbon Dioxide 29 mmol/L N 22-32 Anion Gap 6 mmol/L N 2-11 Glucose 104 mg/dL High 70-100 Blood Urea Nitrogen 20 mg/dL N 6-24 Creatinine 0.76 mg/dL N 0.51-0.95 BUN/Creatinine Ratio 26.3 High 8-20 Calcium 9.2 mg/dL N 8.6-10.3 Total Protein 6.4 g/dL N 6.4-8.9 Albumin 3.9 g/dL N 3.2-5.2 Globulin 2.5 g/dL N 2-4 Albumin/Globulin Ratio 1.6 N 1-3 Total Bilirubin 0.50 mg/dL N 0.2-1.0 Alkaline Phosphatase 43 U/L N 34-104 Alt 23 U/L N 7-52 Ast 23 U/L N 13-39 Egfr Non- 77.9 N >60 Egfr 100.2 N >60 12 Laboratory test 01/23/2017 [facility] Erythrocyte Sed Rate 13 mm/Hr N 0-30 13 finding [phone] Reactive Protein 1.62 mg/L N < 5.00 14 Lipid Profile (Trig/Chol/HDL) 01/23/2017 [facility] Triglycerides 62 mg /dL N 15 [phone] Cholesterol 135 mg/dL N 16 HDL Cholesterol 57.3 mg/dL N 17 LDL Cholesterol 65 mg/dL N 18 Laboratory test 01/23/2017 [facility] TSH (Thyroid 2.36 mcIU/mL N 0.34-5.60 19 finding [phone] Stim Horm) Urine 01/23/2017 [facility] Urine 220.84 mg/dL N Microalbumin [phone] Creatinine Random Ur Microalbumin (mg/L) < 15.0 mg/L N Urine Microalbumin/Creatinine TNP ug/mg N <31 20 Laboratory test 01/23/2017 [facility] Vitamin D Total 52.6 ng/mL High 30-50 21 finding [phone] 25(Oh) Laboratory test 11/28/2016 In House Hemoglobin A1c 5.5 finding Basic Metabolic 08/29/2016 [facility] Sodium 138 mmol/L N 133-145 Panel [phone] Potassium 4.0 mmol/L N 3.5-5.0 Chloride 100 mmol/L Low 101-111 Co2 Carbon Dioxide 32 mmol/L N 22-32 Anion Gap 6 mmol/L N 2-11 Glucose 98 mg/dL N 70-100 Blood Urea Nitrogen 20 mg/dL N 6-24 Creatinine 0.68 mg/dL N 0.51-0.95 BUN/Creatinine Ratio 29.4 High 8-20 Calcium 9.2 mg/dL N 8.6-10.3 Egfr Non- 88.6 N >60 Egfr 113.9 N >60 22 Laboratory test 08/29/2016 In House Hemoglobin A1c 5.6 finding Laboratory test 08/01/2016 [facility] Surgical Interface SEE RESULT 23 finding [phone] Order BELOW Laboratory test 05/28/2016 In House Hemoglobin A1c 5.3 finding Ua Inhouse 03/07/2016 In House Ua Glucose - 24 Ua Bilirubin - Ua Ketones - Ua Specific [place] 1.015 Ua Blood - Ua PH 6.0 Ua Protein - Ua Urobilinogen - Ua Nitrite - Ua Leukocytes - Laboratory test 02/26/2016 In House Hemoglobin A1c 5.6 finding Laboratory test 02/26/2016 [facility] TSH (Thyroid Stim 1.67 ?IU/mL N 0.34-5.6 finding [phone] Horm) 0 Vitamin B12 197 pg/mL N 180-914 25 Vitamin D Total 25(Oh) 70.8 ng/mL High 30-50 Comp Metabolic Panel 02/26/2016 [facility] Sodium 139 mmol/L N 133- 145 [phone] Potassium 3.8 mmol/L N 3.5-5.0 Chloride 101 mmol/L N 101-111 Co2 Carbon Dioxide 31 mmol/L N 22-32 Anion Gap 7 mmol/L N 2-11 Glucose 98 mg/dL N 70-100 Blood Urea Nitrogen 13 mg/dL N 6-24 Creatinine 0.76 mg/dL N 0.51-0.95 BUN/Creatinine Ratio 17.1 N 8-20 Calcium 9.7 mg/dL N 8.6-10.3 Total Protein 6.5 g/dL N 6.4-8.9 Albumin 4.3 g/dL N 3.2-5.2 Globulin 2.2 g/dL N 2-4 Albumin/Globulin Ratio 2.0 N 1-3 Total Bilirubin 0.50 mg/dL N 0.2-1.0 Alkaline Phosphatase 45 U/L N 34-104 Alt 30 U/L N 7-52 Ast 28 U/L N 13-39 Egfr Non- 78.2 N >60 Egfr 100.5 N >60 26 CBC Auto Diff 02/26/2016 [facility] White Blood Count 6.4 10^3/uL N 3.5-10.8 [phone] Red Blood Count 4.67 10^6/uL N 4.0-5.4 Hemoglobin 14.2 g/dL N 12.0-16.0 Hematocrit 42 % N 35-47 Mean Corpuscular Volume 89 fL N 80-97 Mean Corpuscular Hemoglobin 30 pg N 27-31 Mean Corpuscular HGB Conc 34 g/dL N 31-36 Red Cell Distribution Width 13 % N 10.5-15 Platelet Count 233 10^3/uL N 150-450 Mean Platelet Volume 9 um3 N 7.4-10.4 Abs Neutrophils 4.0 10^3/uL N 1.5-7.7 Abs Lymphocytes 1.7 10^3/uL N 1.0-4.8 Abs Monocytes 0.5 10^3/uL N 0-0.8 Abs Eosinophils 0.2 10^3/uL N 0-0.6 Abs Basophils 0 10^3/uL N 0-0.2 Abs Nucleated RBC 0 10^3/uL N Granulocyte % 62.6 % N 38-83 Lymphocyte % 26.8 % N 25-47 Monocyte % 7.4 % N 1-9 Eosinophil % 2.4 % N 0-6 Basophil % 0.8 % N 0-2 Nucleated Red Blood Cells % 0.1 N Lipid Profile 02/26/2016 [facility] Triglycerides 246 mg/dL N 27 (Trig/Chol/HDL) [phone] Cholesterol 155 mg/dL N 28 HDL Cholesterol 46.4 mg/dL N 29 LDL Cholesterol 59 mg/dL N 30 Urine Microalbumin 02/26/2016 [facility] Ur Microalbumin (mg/L) 6.0 mg/ L N Random [phone] Urine Creatinine 142.01 mg/dL N Urine Microalbumin/Creatinine 4.2 ug/mg N <31 Laboratory test 11/20/2015 [facility] Surgical SEE RESULT 31 finding [phone] Pathology BELOW Laboratory test 11/20/2015 [facility] Clotest SEE RESULT 32, 33 finding [phone] BELOW Laboratory test 11/10/2015 In House Hemoglobin A1c 5.7 finding Laboratory test 08/21/2015 In House Hemoglobin A1c 6.5 finding CBC Auto Diff 07/07/2015 [facility] White Blood 7.1 10^3/uL N 4.8-10 [phone] Count .8 Red Blood Count 4.86 10^6/uL N 4.0-5.4 Hemoglobin 14.9 g/dL N 12.0-16.0 Hematocrit 45 % N 35-47 Mean Corpuscular Volume 92 fL N 80-97 Mean Corpuscular Hemoglobin 31 pg N 27-31 Mean Corpuscular HGB Conc 33 g/dL N 31-36 Red Cell Distribution Width 13 % N 10.5-15 Platelet Count 231 10^3/uL N 150-450 Mean Platelet Volume 9 um3 N 7.4-10.4 Abs Neutrophils 4.4 10^3/uL N 1.5-7.7 Abs Lymphocytes 2.0 10^3/uL N 1.0-4.8 Abs Monocytes 0.5 10^3/uL N 0-0.8 Abs Eosinophils 0.2 10^3/uL N 0-0.6 Abs Basophils 0.1 10^3/uL N 0-0.2 Abs Nucleated RBC 0 10^3/uL N Granulocyte % 61.3 % N 38-83 Lymphocyte % 27.8 % N 25-47 Monocyte % 6.5 % N 1-9 Eosinophil % 2.9 % N 0-6 Basophil % 1.5 % N 0-2 Nucleated Red Blood Cells % 0 N Comp Metabolic Panel 07/07/2015 [facility] Sodium 135 mmol/L N 133- 145 [phone] Potassium 3.7 mmol/L N 3.5-5.0 Chloride 101 mmol/L N 101-111 Co2 Carbon Dioxide 27 mmol/L N 22-32 Anion Gap 7 mmol/L N 2-11 Glucose 138 mg/dL High 70-100 Blood Urea Nitrogen 12 mg/dL N 6-24 Creatinine 0.69 mg/dL N 0.51-0.95 BUN/Creatinine Ratio 17.4 N 8-20 Calcium 9.7 mg/dL N 8.6-10.3 Total Protein 6.9 g/dL N 6.4-8.9 Albumin 4.5 g/dL N 3.2-5.2 Globulin 2.4 g/dL N 2-4 Albumin/Globulin Ratio 1.9 N 1-3 Total Bilirubin 0.50 mg/dL N 0.2-1.0 Alkaline Phosphatase 67 U/L N 34-104 Alt 28 U/L N 7-52 Ast 25 U/L N 13-39 Egfr Non- 87.4 N >60 Egfr 112.4 N >60 34 Laboratory test 07/07/2015 [facility] TSH (Thyroid 1.66 ?IU/mL N 0.34 -5.60 finding [phone] Stim Horm) Magnesium 1.8 mg/dL Low 1.9-2.7 Vitamin B12 290 pg/mL N 180-914 35 Vitamin D Total 25(Oh) 21.4 ng/mL Low 30-50 Erythrocyte Sed Rate 7 mm/Hr N 0-30 Lipid Profile 01/13/2015 [facility] Triglycerides 286 mg/dL N 36, 37 (Trig/Chol/HDL) [phone] Cholesterol 220 mg/dL N 38 HDL Cholesterol 39.5 mg/dL N 39 LDL Cholesterol 123 mg/dL N 40 Urine Microalbumin 01/13/2015 [facility] Ur Microalbumin 65.0 mg/L N Random [phone] (mg/L) Urine Creatinine 364.60 mg/dL N Urine Microalbumin/Creatinine 17.8 ug/mg N <31 Laboratory test 01/13/2015 [facility] Hepatitis C Nonreactive N Nonreactive 41 finding [phone] Antibody Urine Micro 01/11/2015 In House Ua WBC - Inhouse Ua RBC - Ua Casts - Ua Epi - Ua Other - Ua Glucose - Ua Bilirubin - Ua Ketones - Ua Specific [place] 1.025 Ua Blood - Ua PH 6.0 Ua Protein - Ua Urobilinogen - Ua Nitrite - Ua Leukocytes - Laboratory test 01/11/2015 In House Hemoglobin A1c 6.8 finding Basic Metabolic Panel 11/16/2014 [facility] Sodium 135 mmol/L N 133- 145 [phone] Potassium 3.7 mmol/L N 3.5-5.0 Chloride 99 mmol/L Low 101-111 Co2 Carbon Dioxide 30 mmol/L N 22-32 Anion Gap 6 mmol/L N 2-11 Glucose 130 mg/dL High 70-100 Blood Urea Nitrogen 16 mg/dL N 6-24 Creatinine 0.87 mg/dL N 0.51-0.95 BUN/Creatinine Ratio 18.4 N 8-20 Calcium 9.4 mg/dL N 8.6-10.3 Egfr Non- 67.1 N >60 Egfr 86.3 N >60 42 Laboratory test 10/25/2014 In House Hemoglobin A1c 6.4 finding Laboratory test 02/01/2014 In House Hemoglobin A1c 6.1 finding HPV High Risk 02/01/2014 [facility] Human Papillomavirus See Comment 43, 44 [phone] Source HPV High Risk Type 16, PCR Negative Negative HPV High Risk Type 18, PCR Negative Negative HPV Other Risk types Negative Negative 45 Laboratory test finding 02/01/2014 [facility] Cytology RUN DATE: 02/02 [phone] <SEE NOTE> Urine Micro Inhouse 02/01/2014 In House Ua WBC 8-15 Ua RBC - Ua Casts - Ua Epi 2-3 Ua Other - Ua Glucose - Ua Bilirubin sm Ua Ketones - Ua Specific [place] 1.020 Ua Blood - Ua PH 6.0 Ua Protein tr Ua Urobilinogen - Ua Nitrite - Ua Leukocytes sm Comp Metabolic Panel 01/04/2014 [facility] Sodium 138 mmol/L 133-145 [address] [place], [place] [id number] [phone] Potassium 4.0 mmol/L 3.7-5.6 Chloride 104 mmol/L 101-111 Co2 Carbon Dioxide 27 mmol/L 22-32 Anion Gap 7 mmol/L 2-11 Glucose 112 mg/dL High 70-100 Blood Urea Nitrogen 19 mg/dL 6-24 Creatinine 0.76 mg/dL 0.51-0.95 BUN/Creatinine Ratio 25.0 High 8-20 Calcium 8.8 mg/dL 8.6-10.3 Total Protein 6.4 g/dL 6.4-8.9 Albumin 4.0 g/dL 3.2-5.2 Globulin 2.4 g/dL 2-4 Albumin/Globulin Ratio 1.7 1-3 Total Bilirubin 0.60 mg/dL 0.2-1.0 Alkaline Phosphatase 66 U/L 34-104 Alt 25 U/L 7-52 Ast 21 U/L 13-39 Egfr Non- 78.7 >60 Egfr 101.2 >60 47 Lipid Profile 01/04/2014 [facility] Triglycerides 237 mg/dL 48 (Trig/Chol/HDL) [address] [place] [address] [phone] Cholesterol 198 mg/dL 49 HDL Cholesterol 43.1 mg/dL 50 LDL Cholesterol 108 mg/dL 51 CBC With 01/04/2014 [facility] White Blood 6.3 10^3/uL 4.8- 10.8 Manual Diff [address] [place] [address] [phone] Red Blood Count 4.80 10^6/uL 4.0-5.4 Hemoglobin 14.5 g/dL 12.0-16.0 Hematocrit 42 % 35-47 Mean Corpuscular Volume 87 fL 80-97 Mean Corpuscular Hemoglobin 30 pg 27-31 Mean Corpuscular HGB Conc 35 g/dL 31-36 Red Cell Distribution Width 13 % 10.5-15 Platelet Count 212 10^3/uL 150-450 Mean Platelet Volume 9 um3 7.4-10.4 Abs Neutrophils 3.5 10^3/uL 1.5-7.7 Abs Lymphocytes 2.0 10^3/uL 1.0-4.8 Abs Monocytes 0.5 10^3/uL 0-0.8 Abs Eosinophils 0.3 10^3/uL 0-0.6 Abs Basophils 0.1 10^3/uL 0-0.2 Abs Nucleated RBC 0 10^3/uL Neutrophil % 65 % 38-83 Band % 1 % 0-8 Lymphocytes % 21 % Low 25-47 Monocytes % 8 % 0-13 Eosinophils % 4 % 0-6 Basophil % 1 % 0-2 RBC Morphology Normal Normal Laboratory test 11/11/2013 In House Hemoglobin A1c 6.2 finding Surgical 08/16/2013 [facility] S RUN DATE: 52 Pathology [phone] 08/17/ <SEE NOTE> Laboratory test 05/25/2013 In House Hemoglobin A1c 6.1 finding Cortisol Free 02/03/2013 [facility] Urine Free 2.4 Abnormal 3.5-45 53 24HR Urine [phone] Cortisol mcg/24h Urine Collection Duration 24 h Urine Total Volume 400 mL 54 Comp Metabolic Panel 01/29/2013 [facility] Sodium 136 mmol/L 133- 145 [phone] Potassium 3.7 mmol/L 3.5-5.0 Chloride 101 mmol/L 101-111 Co2 Carbon Dioxide 26.0 mmol/L 22-32 Anion Gap 9.0 mmol/L 2-11 Glucose 135 mg/dL High 70-100 Blood Urea Nitrogen 15 mg/dL 6-24 Creatinine 0.80 mg/dL 0.50-1.40 BUN/Creatinine Ratio 18.8 8-20 Calcium 9.5 mg/dL 8.1-9.9 Total Protein 5.8 g/dL Low 6.2-8.1 Albumin 3.8 g/dL 3.6-5.4 Globulin 2.0 g/dL 2-4 Albumin/Globulin Ratio 1.9 1-3 Total Bilirubin 0.8 mg/dL 0.4-1.5 Alkaline Phosphatase 59 U/L 30-110 Alt 27 U/L 14-54 Ast 28 U/L 12-42 Egfr Non- 74.5 >60 Egfr 95.8 >60 55 CBC With Manual 01/29/2013 [facility] White Blood 6.7 10^3/uL 4.8- 10.8 Diff [phone] Count Red Blood Count 4.72 10^6/uL 4.0-5.4 Hemoglobin 14.4 g/dL 12.0-16.0 Hematocrit 43 % 35-47 Mean Corpuscular Volume 90 fL 80-97 Mean Corpuscular Hemoglobin 30 pg 27-31 Mean Corpuscular HGB Conc 34 g/dL 31-36 Red Cell Distribution Width 13 % 10.5-15 Platelet Count 225 10^3/uL 150-450 Mean Platelet Volume 9 um3 7.4-10.4 Abs Neutrophils 3.8 10^3/uL 1.5-7.7 Abs Lymphocytes 2.0 10^3/uL 1.0-4.8 Abs Monocytes 0.5 10^3/uL 0-0.8 Abs Eosinophils 0.2 10^3/uL 0-0.6 Abs Basophils 0.1 10^3/uL 0-0.2 Abs Nucleated RBC 0 10^3/uL Neutrophil % 58 % 38-83 Band % 1 % 0-8 Lymphocytes % 22 % Low 25-47 Monocytes % 12 % 0-13 Eosinophils % 4 % 0-6 Basophil % 3 % High 0-2 RBC Morphology Normal Normal Lipid Profile 01/29/2013 [facility] Triglycerides 274 mg/dL High 40- 200 (Trig/Chol/HDL) [phone] Cholesterol 185 mg/dL Less than 200 HDL Cholesterol 47 mg/dL 40-60 56 Cholesterol/HDL Ratio 3.9 Average 1-4.44 LDL Cholesterol 83.2 mg/dL Less Than 100 57 Urine Microalbumin 01/29/2013 [facility] Ur Microalbumin 22.0 mg/L 58 Random [phone] (mg/L) Urine Creatinine 210.4 mg/dL Urine Microalbumin/Creatinine 10.5 ug/mg Less Than 31 Laboratory test 01/29/2013 [facility] TSH (Thyroid 3.89 miu/mL 0.34- 5.60 59 finding [phone] Stimulating Horm) Free T4 0.99 ng/mL 0.61-1.24 60 Laboratory test 01/28/2013 In House Hemoglobin A1c 6.3 finding Laboratory test 05/12/2012 [facility] Potassium 3.9 mmol/L 3.5-5.0 finding [phone] Comp Metabolic Panel 05/12/2012 [facility] Sodium 139 mmol/L 135- 145 [phone] Chloride 100 mmol/L Low 101-111 Co2 (Carbon Dioxide) 31.0 mmol/L 22-32 Anion Gap 8.0 mmol/L 2-11 61 Glucose 140 mg/dL High 70-100 BUN 15 mg/dL 6-24 Creatinine 0.9 mg/dL 0.50-1.40 One Over Creatinine 1.11 BUN/Creatinine Ratio 16.7 8-20 Calcium 9.4 mg/dL 8.1-9.9 Total Protein 6.5 GM/DL 6.2-8.1 Albumin 4.0 GM/DL 3.6-5.4 Globulin 2.5 GM/DL 2-4 Albumin/Globulin Ratio 1.6 1-3 Bilirubin Total 0.7 mg/dL 0.4-1.5 62 Alkaline Phosphatase 83 U/L 30-110 Alt (SGPT) 29 U/L 14-54 Ast (Sgot) 25 U/L 12-42 eGFR Non- 65.0 > 60 eGFR 83.6 > 60 63 CBC Auto Diff 05/12/2012 [facility] White Blood Count 6.4 CUMM 4.8- 10.8 [phone] Red Cell Count 4.60 CUMM 4.2-5.4 Hemoglobin 14.6 g/dL 12.0-16.0 Hematocrit 42 % 35-47 Mean Corpuscular Volume 90 um3 79-97 Mean Corpuscular Hemoglob 32 pg High 27-31 Mean Corpuscular HGB Cone 35 g/dL 32-36 Redcell Distribution WDTH 13 % 10.5-15 Platelet Count 213 CUMM 150-450 Mean Platelet Volume 9.3 um3 7.4-10.4 Gran % 57.7 % 38-83 Lymph % 29.3 % 20-45 Mononuclear % 8.7 % 1-9 Eosinophil % 3.1 % 0-6 Basophil % 1.2 % 0-2 Abs Lymphs 1.9 1.0-4.8 Abs Mononuclear 0.6 0-0.8 Absolute Neutrophil Count 3.7 1.5-7.7 Abs Eosinophils 0.2 0-0.6 Abs Basophils 0.1 0-0.2 Laboratory test 05/12/2012 [facility] TSH 3.90 MIU/ML 0.34-5.60 finding [phone] Lipid Profile 05/12/2012 [facility] Triglyceride 378 mg/dL High 40- 200 (Trig/Chol/HDL) [phone] Cholesterol 266 mg/dL High Less Than 200 64 High Density Lipoprotein 50 mg/dL 40-60 65 Cholesterol/HDL Ratio 5.32 AVERAGE High 1-4.44 Low Density Lipoprotein 140 mg/dL High Less Than 100 66 Laboratory test 04/16/2012 In House Hemoglobin A1c 6.4 finding Laboratory test 10/03/2011 In House Hemoglobin A1c 6.2 finding Laboratory test 07/23/2011 In House Hemoglobin A1c 5.6 finding Laboratory test 03/21/2011 In House Hemoglobin A1c 6.0 finding Laboratory test 12/17/2010 [facility] Surgical Pathology --------- 67, 68 finding [phone] ------- <SEE NOTE> Laboratory test 12/17/2010 [facility] Cytology --------- 69, 70 finding [phone] ------- <SEE NOTE> Laboratory test 12/17/2010 In House Hemoglobin A1c 6.5 finding Laboratory test 11/19/2010 [facility] Fructosamine 225 200-28 71 finding [phone] mcmol/L 5 Hemoglobin A1c 7.3 % High Less Than 6.0 72 Comp Metabolic Panel 11/19/2010 [facility] Sodium 140 mmol/L 135- 145 [phone] Potassium 3.6 mmol/L 3.5-5.0 Chloride 103 mmol/L 101-111 Co2 (Carbon Dioxide) 28.0 mmol/L 22-32 Anion Gap 9.0 mmol/L 2-11 73 Glucose 132 mg/dL High 70-100 BUN 13 mg/dL 6-24 Creatinine 0.80 mg/dL 0.50-1.40 One Over Creatinine 1.20 BUN/Creatinine Ratio 16.3 8-20 Calcium 9.3 mg/dL 8.1-9.9 Total Protein 6.6 GM/DL 6.2-8.1 Albumin 4.1 GM/DL 3.6-5.4 Globulin 2.5 GM/DL 2-4 Albumin/Globulin Ratio 1.6 1-3 Bilirubin Total 0.7 mg/dL 0.4-1.5 74 Alkaline Phosphatase 64 U/L 30-110 Alt (SGPT) 34 U/L 14-54 Ast (Sgot) 28 U/L 12-42 eGFR Non- 75.0 > 60 eGFR 96.5 > 60 75 Lipid Profile 11/19/2010 [facility] Triglyceride 279 mg/dL High 40- 200 (Trig/Chol/HDL) [phone] Cholesterol 198 mg/dL Less Than 200 76 High Density Lipoprotein 49 mg/dL 40-60 77 Cholesterol/HDL Ratio 4.04 AVERAGE 1-4.44 Low Density Lipoprotein 93 mg/dL Less Than 100 78 Surgical 07/19/2010 [facility] Surgical 79 Pathology [phone] Pathology <SEE NOTE> Lipid Profile 07/09/2010 [facility] Triglyceride 404 mg/dL High 40- (Trig/Chol/HD [phone] 200 L) Cholesterol 219 mg/dL High Less Than 200 80 High Density Lipoprotein 43 mg/dL 40-60 81 Cholesterol/HDL Ratio 5.09 AVERAGE High 1-4.44 Low Density Lipoprotein (SEE NOTE) mg/dL Less Than 100 82 Laboratory test 07/09/2010 [facility] Hemoglobin A1c 7.1 % High Less Than 83 finding [phone] 6.0 Basic Metabolic 07/09/2010 [facility] Sodium 135 135-145 Panel [phone] mmol/L Potassium 3.7 mmol/L 3.5-5.0 Chloride 98 mmol/L Low 101-111 Co2 (Carbon Dioxide) 28.0 mmol/L 22-32 Anion Gap 9.0 mmol/L 2-11 84 Glucose 165 mg/dL High 70-100 85 BUN 11 mg/dL 6-24 Creatinine 0.70 mg/dL 0.50-1.40 One Over Creatinine 1.40 BUN/Creatinine Ratio 15.7 8-20 Calcium 8.3 mg/dL 8.1-9.9 eGFR Non- 93.0 > 60 eGFR 112.6 > 60 86 Cortisol Free 24HR 06/10/2010 [facility] Cortisol, Free, 8.0 mcg/24h 3.5-45 Urine [phone] Urine Urine Collection Duration 24 h () Urine Total Volume 1450 mL () 87 Ua Inhouse 06/05/2010 In House Ua Glucose +++ / 2000 Ua Bilirubin - Ua Ketones - Ua Specific [place] 1.015 Ua Blood - Ua PH 6.0 Ua Protein - Ua Urobilinogen - Ua Nitrite - Ua Leukocytes - Laboratory test 06/05/2010 [facility] Hemoglobin A1c 6.9 % High Less Than 88 finding [phone] 6.0 Laboratory test 06/05/2010 [facility] TSH 3.14 0.34-5.60 finding [phone] MIU/ML CBC With Manual 06/05/2010 [facility] White Blood 7.0 CUMM 4.8-10.8 Diff [phone] Count Red Cell Count 4.80 CUMM 4.2-5.4 Hemoglobin 15.0 g/dL 12.0-16.0 Hematocrit 43 % 35-47 Mean Corpuscular Volume 89 um3 79-97 Mean Corpuscular Hemoglob 31 pg 27-31 Mean Corpuscular HGB Cone 35 g/dL 32-36 Redcell Distribution WDTH 13 % 10.5-15 Platelet Count 239 CUMM 150-450 Mean Platelet Volume 8.0 um3 7.4-10.4 Polysegmented Neutrophil 68 % 38-83 Band Neutrophil 2 % 0-8 Lymphocyte 23 % Low 25-47 Monocyte 4 % 0-13 Eosinophil 2 % 0-6 Basophil 1 % 0-2 Absolute Neutrophil Count 4.9 RBC Morphology NORMAL Comp Metabolic Panel 06/05/2010 [facility] Sodium 138 mmol/L 135- 145 [phone] Potassium 4.1 mmol/L 3.5-5.0 Chloride 101 mmol/L 101-111 Co2 (Carbon Dioxide) 27.0 mmol/L 22-32 Anion Gap 10.0 mmol/L 2-11 89 Glucose 101 mg/dL High 70-100 90 BUN 11 mg/dL 6-24 Creatinine 0.70 mg/dL 0.50-1.40 One Over Creatinine 1.40 BUN/Creatinine Ratio 15.7 8-20 Calcium 8.9 mg/dL 8.1-9.9 Total Protein 7.0 GM/DL 6.2-8.1 Albumin 4.3 GM/DL 3.6-5.4 Globulin 2.7 GM/DL 2-4 Albumin/Globulin Ratio 1.6 1-3 Bilirubin Total 0.6 mg/dL 0.4-1.5 91 Alkaline Phosphatase 70 U/L 30-110 Alt (SGPT) 39 U/L 14-54 Ast (Sgot) 29 U/L 12-42 eGFR Non- 93.0 > 60 eGFR 112.6 > 60 92 Laboratory test 04/25/2010 [facility] Hemoglobin A1c 6.5 % High Less Than 93 finding [phone] 6.0 LDL Direct 136 mg/dL High Less Than 100 94 Glucose 136 mg/dL High 70-100 95 Lipid Profile 04/25/2010 [facility] Triglyceride 269 mg/dL High 40- 200 (Trig/Chol/HDL) [phone] Cholesterol 242 mg/dL High Less Than 200 96 High Density Lipoprotein 41 mg/dL 40-60 97 Cholesterol/HDL Ratio 5.90 AVERAGE High 1-4.44 Low Density Lipoprotein 147 mg/dL High Less Than 100 98 Comp Metabolic Panel 04/09/2010 [facility] Sodium 138 mmol/L 135- 145 [phone] Potassium 3.8 mmol/L 3.5-5.0 Chloride 103 mmol/L 101-111 Co2 (Carbon Dioxide) 28.0 mmol/L 22-32 Anion Gap 7.0 mmol/L 2-11 99 Glucose 144 mg/dL High 70-100 100 BUN 11 mg/dL 6-24 Creatinine 0.70 mg/dL 0.50-1.40 One Over Creatinine 1.40 BUN/Creatinine Ratio 15.7 8-20 Calcium 9.3 mg/dL 8.1-9.9 101 Total Protein 6.8 GM/DL 6.2-8.1 Albumin 4.0 GM/DL 3.6-5.4 Globulin 2.8 GM/DL 2-4 Albumin/Globulin Ratio 1.4 1-3 Bilirubin Total 0.6 mg/dL 0.4-1.5 102 Alkaline Phosphatase 68 U/L 30-110 Alt (SGPT) 46 U/L 14-54 Ast (Sgot) 34 U/L 12-42 eGFR Non- 93.4 > 60 eGFR 113.0 > 60 103 Lipid Profile 04/09/2010 [facility] Triglyceride 474 mg/dL High 40- 200 (Trig/Chol/HDL) [phone] Cholesterol 255 mg/dL High Less Than 200 104 High Density Lipoprotein 40 mg/dL 40-60 105 Cholesterol/HDL Ratio 6.38 AVERAGE High 1-4.44 Low Density Lipoprotein (SEE NOTE) mg/dL Less Than 100 106 Laboratory 04/06/2010 [facility] Surgical 107, test finding [phone] Pathology <SEE NOTE> 108 Laboratory 04/06/2010 [facility] Cytology 109, test finding [phone] <SEE NOTE> 110 Laboratory 03/29/2010 [facility] Cytology 111, test finding [phone] <SEE NOTE> 112 Laboratory 03/27/2009 In House Culture neg test finding Throat CBC With 10/14/2008 [facility] White Blood 3.8 CUMM Low 4.8 Electronic [phone] Count -10 Diff Stat .8 Red Cell Count 4.65 CUMM 4.2-5.4 Hemoglobin 14.3 g/dL 12.0-16.0 Hematocrit 40 % 35-47 Mean Corpuscular Volume 85 um3 79-97 Mean Corpuscular Hemoglob 31 pg 27-31 Mean Corpuscular HGB Cone 36 g/dL 32-36 Redcell Distribution WDTH 13 % 10.5-15 Platelet Count 197 CUMM 150-450 Mean Platelet Volume 8.5 um3 7.4-10.4 Gran % 44.9 % 38-83 Lymph % 40.3 % 25-47 Mononuclear % 10.6 % High 1-9 Eosinophil % 3.4 % 0-6 Basophil % 0.8 % 0-2 Abs Lymphs 1.5 1.0-4.8 Abs Mononuclear 0.4 0-0.8 Absolute Neutrophil Count 1.7 1.5-7.7 Abs Eosinophils 0.1 0-0.6 Abs Basophils 0 0-0.2 113 PT/Inr Stat 10/14/2008 [facility] Protime 10.9 10.9-13.3 [phone] Inr 0.81 114 PTT (Aptt) Stat 10/14/2008 [facility] PTT (Aptt) 21.7 20.1-28.2 115 [phone] Laboratory test 10/14/2008 [facility] D Dimer 443 High < 230 116 finding [phone] Quantitative NG/ML Troponin-I (TnI) 0 NG/ML 0-0.06 117 Basic Metabolic Panel Stat 10/14/2008 [facility] Sodium 138 mmol/L 135-145 [phone] Potassium 3.6 mmol/L 3.5-5.0 Chloride 106 mmol/L 101-111 Co2 (Carbon Dioxide) 26.0 mmol/L 22-32 Anion Gap 6.0 mmol/L 2-11 118 Glucose 105 mg/dL High 70-100 119 BUN 11 mg/dL 6-24 Creatinine 0.50 mg/dL 0.50-1.40 One Over Creatinine 2.00 BUN/Creatinine Ratio 22.0 High 8-20 Calcium 8.6 mg/dL 8.1-9.9 120 CBC With Manual 09/12/2008 [facility] White Blood 11.1 CUMM High 4.8- 10.8 Diff [phone] Count Red Cell Count 4.88 CUMM 4.2-5.4 Hemoglobin 14.8 g/dL 12.0-16.0 Hematocrit 43 % 35-47 Mean Corpuscular Volume 87 um3 79-97 Mean Corpuscular Hemoglob 30 pg 27-31 Mean Corpuscular HGB Cone 35 g/dL 32-36 Redcell Distribution WDTH 13 % 10.5-15 Platelet Count 331 CUMM 150-450 Mean Platelet Volume 8.1 um3 7.4-10.4 Polysegmented Neutrophil 53 % 38-83 Band Neutrophil 1 % 0-8 Lymphocyte 32 % 25-47 Monocyte 9 % 0-13 Eosenophil 3 % 0-6 Basophil 1 % 0-2 Atypical Lymph 1 % 0-6 Absolute Neutrophil Count 5.9 RBC Morphology NORMAL Laboratory test 09/12/2008 [facility] Hemoglobin A1c 6.1 % High <6.0 121 finding [phone] Comp Metabolic 09/12/2008 [facility] Sodium 141 mmol/L 135-145 Panel [phone] Potassium 3.9 mmol/L 3.5-5.0 Chloride 105 mmol/L 101-111 Co2 (Carbon Dioxide) 29.0 mmol/L 22-32 Anion Gap 7.0 mmol/L 2-11 122 Glucose 99 mg/dL 70-100 123 BUN 14 mg/dL 6-24 Creatinine 0.90 mg/dL 0.50-1.40 One Over Creatinine 1.10 BUN/Creatinine Ratio 15.6 8-20 Calcium 9.0 mg/dL 8.1-9.9 124 Total Protein 5.9 GM/DL Low 6.2-8.1 Albumin 3.6 GM/DL 3.6-5.4 Globulin 2.3 GM/DL 2-4 Albumin/Globulin Ratio 1.6 1-3 Bilirubin Total 0.8 mg/dL 0.4-1.5 Alkaline Phosphatase 65 U/L 30-110 Alt (SGPT) 33 U/L 14-54 Ast (Sgot) 20 U/L 12-42 Lipid Profile 09/12/2008 [facility] Triglyceride 320 mg/dL High 40- 200 (Trig/Chol/HDL) [phone] Cholesterol 211 mg/dL High Less Than 200 125 High Density Lipoprotein 64 mg/dL High 40-60 126 Cholesterol/HDL Ratio 3.30 AVERAGE 1-4.44 Low Density Lipoprotein 83 mg/dL Less Than 100 127 CBC With Manual Diff 04/16/2007 [facility] RBC Morphology NORMAL [address] [place] [address] [phone] White Blood Count 6.3 CUMM 4.8-10.8 Absolute Neutrophil Count 3.4 Hematocrit 42 % 35-47 Hemoglobin 14.2 g/dL 12.0-16.0 Eosenophil 4 % 0-6 Lymphocyte 36 % 5-47 Mean Corpuscular HGB Cone 34 g/dL 32-36 Mean Corpuscular Hemoglob 30 pg 27-31 Mean Corpuscular Volume 88 um3 79-97 Monocyte 6 % 0-13 Mean Platelet Volume 8.9 um3 7.4-10.4 Platelet Count 241 CUMM 150-450 Polysegmented Neutrophil 54 % 38-83 Red Cell Count 4.75 CUMM 4.2-5.4 Redcell Distribution WDTH 12 % 10.5-15 Lipid Profile 04/16/2007 [facility] Cholesterol/HDL 4.94 High 1-4.44 (Trig/Chol/HDL) [address] [place] [place] [address] [phone] Cholesterol 232 mg/dL High Less Than 200 128 Triglyceride 279 mg/dL High 40-200 High Density Lipoprotein 47 mg/dL 40-60 Low Density Lipoprotein 129 mg/dL High Less Than 100 129 Comp Metabolic 04/16/2007 [facility] One Over Creatinine 1.[address] [place] [address] [phone] Anion Gap 7.0 mmol/L 2-11 130 Albumin/Globulin Ratio 1.5 1-3 Albumin 3.6 GM/DL 3.6-5.4 Alkaline Phosphatase 64 U/L 30-110 Alt (SGPT) 31 U/L 14-54 Ast (Sgot) 24 U/L 12-42 BUN 11 mg/dL 6-24 Calcium 8.9 mg/dL 8.7-10.2 Chloride 106 mmol/L 101-111 Co2 (Carbon Dioxide) 27.0 mmol/L 22-32 Globulin 2.4 GM/DL 2-4 Glucose 106 mg/dL High 70-105 Potassium 4.1 mmol/L 3.5-5.0 Sodium 140 mmol/L 135-145 Bilirubin Total 0.8 mg/dL 0.4-1.5 Total Protein 6.0 GM/DL Low 6.2-8.1 BUN/Creatinine Ratio 13.8 8-20 Creatinine 0.8 mg/dL 0.5-1.4 Laboratory 04/08/2007 [facility] Cytology 131 test finding [phone] <SEE NOTE> Laboratory 03/27/2006 [facility] LDH 211 U/L High 95- 132 test finding [phone] CBC With 03/27/2006 [facility] RBC Morphology NORMAL Manual Diff [phone] White Blood Count 10.9 CUMM High 4.8-10.8 133 Hematocrit 42 % 35-47 Hemoglobin 14.7 g/dL 12.0-16.0 Mean Corpuscular HGB Cone 35 g/dL 32-36 Mean Corpuscular Hemoglob 31 pg 27-31 Mean Corpuscular Volume 89 um3 79-97 Mean Platelet Volume 9.0 um3 7.4-10.4 Platelet Count 262 CUMM 150-450 Polysegmented Neutrophil 74 % 38-83 Red Cell Count 4.76 CUMM 4.2-5.4 Redcell Distribution WDTH 13 % 10.5-15 Suspect Flag 1 134 Absolute Neutrophil Count 8.1 Band Neutrophil 1 % 0-8 Eosenophil 2 % 0-6 Lymphocyte 20 % 5-47 Monocyte 3 % 0-13 Comp Metabolic Panel 03/27/2006 [facility] Over Creatinine 1.25 [phone] Anion Gap 9.0 mmol/L 2-11 135 Albumin/Globulin Ratio 1.4 1-3 Albumin 4.0 GM/DL 3.6-5.4 Alkaline Phosphatase 79 U/L 30-110 Alt (SGPT) 39 U/L 14-54 Ast (Sgot) 36 U/L 12-42 BUN 11 mg/dL 6-24 Calcium 9.3 mg/dL 8.7-10.2 Chloride 102 mmol/L 101-111 Co2 (Carbon Dioxide) 28.0 mmol/L 22-32 Globulin 2.9 GM/DL 2-4 Glucose 133 mg/dL High 70-105 Potassium 3.6 mmol/L 3.5-5.0 Sodium 139 mmol/L 135-145 Bilirubin Total 1.1 mg/dL 0.4-1.5 Total Protein 6.9 GM/DL 6.2-8.1 BUN/Creatinine Ratio 13.8 8-20 Creatinine 0.8 mg/dL 0.5-1.4 Laboratory test 03/27/2006 [facility] CPK (Creatine 161 U/L 0-170 finding [phone] Kinase) Troponin-I (TnI) 0.03 NG/ML 0-0.06 136 D Dimer Quantitative < 200 NG/ML < 230 137 Fibrinogen 260 mg/dL 160-382 Laboratory test 01/20/2006 [facility] Cytology Run: 01/20/06 138 finding [phone] <SEE NOTE> Basic Metabolic 01/10/2006 [facility] Over 1.11 Panel [phone] Creatinine Anion Gap 8.0 mmol/L 2-11 139 BUN 16 mg/dL 6-24 Calcium 9.3 mg/dL 8.7-10.2 Chloride 102 mmol/L 101-111 Co2 (Carbon Dioxide) 27.0 mmol/L 22-32 Glucose 121 mg/dL High 70-105 Potassium 3.7 mmol/L 3.5-5.0 Sodium 137 mmol/L 135-145 BUN/Creatinine Ratio 17.8 8-20 Creatinine 0.9 mg/dL 0.5-1.4 1 SEE RESULT BELOW Name: KARO SALAMANCA : [address]: Sparkle Guerrero RPA-C Acct: [id number] Unit: [id number] AGE: 63 Location: [facility] Re06/30/18 SEX: F Status: REG REF SPEC: [id number] SHASHANK: 06/30/[address]: Sparkle VAZQUEZC REQ: [id number] RECD: 06/30/18 STATUS: SOUT _ ORDERED: TP IMAGE ANALYS, HPV/Thin Prep COMMENTS: [id number] Negative for Intraepithelial lesion or Malignancy Date Time Test Result Flag (u) Normal Range 06/30/18 1146 @ HPV RNA Negative Negative @ @ The high-risk HPV types detected by the assay include: 16, @ 18, 31, 33, 35, 39, 45, 51, 52, 56, 58, 59, 66, and 68. A. Ectocervical/Endocervical Specimen Adequacy: Satisfactory of evaluation Transformation zone component cannot be definitely identified due to presence of atrophy or other hormonal changes Patient Information: HPV: High risk HPV RNA testing regardless of pap results. Actual Specimen Date: 06/30/18 LMP If Unknown: 20 yrs ago Spec Date if unknown: 2013 ?: N Post Menopausal?: Y Hysterectomy?: N Previous Abnormal Pap Smears?:Y If Yes, enter Diagnosis: 2009 MINA 111 Other Pertinent History: Vulvar itch/irritation Signed by and Reported on: MAGY Concepcion (ASCP) [id number] This Pap test was evaluated with the assistance of the [place] [employer] System. Due to cytologic findings at the sleeve baster microscope, comprehensive manual rescreening by a Dried Yeast Supervisor may be required. The Pap Smear is a screening test designed to aid in the detection of premalignant and malignant conditions of the uterine cervix. It is not a diagnostic procedure and should not be used as the sole means of detecting cervical cancer. Both false- positive and false- negative reports do occur. Depending on your risk status, a Pap smear should be obtained and evaluated every 1-3 years. END OF REPORT DEPARTMENT OF PATHOLOGY, [address] [place] [address] Mark Carolina M.D. Director [facility] # [id number] 2 Because ethnic data is not always readily available, this report includes an eGFR for both -Americans and non- Americans. The National Kidney Disease Education Program (NKDEP) does not endorse the use of the MDRD equation for patients that are not between the ages of 18 and 70, are , have extremes of body size, muscle mass, or nutritional status, or are non- or non-. According to the National Kidney Foundation, irrespective of diagnosis, the stage of the disease is based on the level of kidney function: Stage Description GFR(mL/min/1.73 m(2)) 1 Kidney damage with normal or decreased GFR 90 2 Kidney damage with mild decrease in GFR 60-89 3 Moderate decrease in GFR 30-59 4 Severe decrease in GFR 15-29 5 Kidney failure <15 (or dialysis) 3 FASTING 12 HOUR 4 FASTING 12 HOUR 5 Desirable: <150 Borderline High: 150-199 High: 200-499 Very High: >500 6 Desirable: <200 Borderline High: 200-239 High: >239 7 Low: <40 Desirable: 40-60 High: >60 8 Desirable: <100 Near Optimal: 100-129 Borderline High: 130-159 High: 160-189 Very High: >189 9 FASTING 12 HOUR 10 Unable to calculate due to low microalbumin 11 FASTING 12 HOUR 12 Because ethnic data is not always readily available, this report includes an eGFR for both -Americans and non- Americans. The National Kidney Disease Education Program (NKDEP) does not endorse the use of the MDRD equation for patients that are not between the ages of 18 and 70, are , have extremes of body size, muscle mass, or nutritional status, or are non- or non-. According to the National Kidney Foundation, irrespective of diagnosis, the stage of the disease is based on the level of kidney function: Stage Description GFR(mL/min/1.73 m(2)) 1 Kidney damage with normal or decreased GFR 90 2 Kidney damage with mild decrease in GFR 60-89 3 Moderate decrease in GFR 30-59 4 Severe decrease in GFR 15-29 5 Kidney failure <15 (or dialysis) 13 FASTING 12 HOUR 14 Acute inflammation: >10.00 15 Desirable <150 Borderline high 150-199 High 200-499 Very High >500 16 Desirable <200 Borderline high 200-239 High >239 17 Low <40 Desirable: 40-60 High: >60 18 Desirable: <100 mg/dL Near Optimal: 100-129 mg/dL Borderline High: 130-159 mg/dL High: 160-189 mg/dL Very High: >189 mg/dL 19 FASTING 12 HOUR 20 Unable to calculate due to low microalbumin 21 FASTING 12 HOUR 22 Because ethnic data is not always readily available, this report includes an eGFR for both -Americans and non- Americans. The National Kidney Disease Education Program (NKDEP) does not endorse the use of the MDRD equation for patients that are not between the ages of 18 and 70, are , have extremes of body size, muscle mass, or nutritional status, or are non- or non-. According to the National Kidney Foundation, irrespective of diagnosis, the stage of the disease is based on the level of kidney function: Stage Description GFR(mL/min/1.73 m(2)) 1 Kidney damage with normal or decreased GFR 90 2 Kidney damage with mild decrease in GFR 60-89 3 Moderate decrease in GFR 30-59 4 Severe decrease in GFR 15-29 5 Kidney failure <15 (or dialysis) 23 SEE RESULT BELOW Name: KARO SALAMANCA : [address]: Juan David Villalobos MD Acct: [id number] Unit: [id number] AGE: 61 Location: ENDO Re08/01/16 SEX: F Status: DEP REF SPEC: [id number] SHASHANK: 08/01/16- SUBM DR: Juan David Villalobos MD REQ: [id number] RECD: 08/01/16 STATUS: CHANDNI PARRA DR: Hakeem Brewster DO _ ORDERED: LEVEL IV/2 FINAL DIAGNOSIS 1. Colon, right, biopsy: -- Serrated adenomatous polyp. -- No high-grade dysplasia identified. 2. Colon, transverse, biopsy: -- Tubular adenoma. -- No high grade dysplasia or malignancy. CLINICAL HISTORY Sister with colon cancer POST-OPERATIVE DIAGNOSIS Colonoscopy into terminal ileum, prep good - 2 polyps removed, sigmoid diverticulosis. Conclusions/Plan: Two polyps removed GROSS DESCRIPTION 1. The specimen is received in formalin labeled, Right Colon Polyp, and consists of a 0.5 by up to 0.3 x 0.1 cm key-white irregular soft tissue fragment, which is submitted entirely in one cassette. 2. The specimen is received in formalin labeled, Biopsy Transverse Colon Polyp, and consists of a 0.3 x 0.2 x 0.2 cm key polypoid soft tissue fragment, which is inked and submitted entirely in one cassette. Signed (signature on file) Mark Carolina MD 1145 END OF REPORT * ML=Testing performed at Main Lab DEPARTMENT OF PATHOLOGY, [address] [place] [address] Mark Carolina M.D. Director [facility] # [id number] 24 void, clear, yellow 25 Normal Range 180 to 914 Indeterminate Range 145 to 180 Deficient Range <145 26 Because ethnic data is not always readily available, this report includes an eGFR for both -Americans and non- Americans. The National Kidney Disease Education Program (NKDEP) does not endorse the use of the MDRD equation for patients that are not between the ages of 18 and 70, are , have extremes of body size, muscle mass, or nutritional status, or are non- or non-. According to the National Kidney Foundation, irrespective of diagnosis, the stage of the disease is based on the level of kidney function: Stage Description GFR(mL/min/1.73 m(2)) 1 Kidney damage with normal or decreased GFR 90 2 Kidney damage with mild decrease in GFR 60-89 3 Moderate decrease in GFR 30-59 4 Severe decrease in GFR 15-29 5 Kidney failure <15 (or dialysis) 27 Desirable <150 Borderline high 150-199 High 200-499 Very High >500 28 Desirable <200 Borderline high 200-239 High >239 29 Low <40 Desirable: 40-60 High: >60 30 Desirable: <100 mg/dL Near Optimal: 100-129 mg/dL Borderline High: 130-159 mg/dL High: 160-189 mg/dL Very High: >189 mg/dL 31 SEE RESULT BELOW Name: KARO SALAMANCA : [address]: Juan David Villalobos MD Acct: [id number] Unit: [id number] AGE: 60 Location: [facility] Re11/20/15 SEX: F Status: REG REF SPEC: [id number] SHASHANK: 11/20/15-[address]: Juan David Villalobos MD REQ: [id number] RECD: 11/20/15161 STATUS: CHANDNI PARRA DR: Chetan Brewster DO _ ORDERED: LEVEL IV FINAL DIAGNOSIS Stomach, antrum, biopsy: -- Inflamed hyperplastic polyp. CLINICAL HISTORY Pre-op EGD for bariatric surgery; history of gastroesophageal reflux disease POST-OPERATIVE DIAGNOSIS Esophagus - normal, no erosions/Smith's; stomach - 2 small antral polyps removed, otherwise normal; duodenum - normal bulb to third portion. Conclusions/Plan: Small polyps removed otherwise normal EGD GROSS DESCRIPTION The specimen is received in formalin labeled, Biopsy Gastric Antral Polyps, and consists of two key white irregular soft tissue fragments averaging 0.3 x 0.3 x 0.2 cm, which are submitted entirely in one cassette. Signed (signature on file) Mark Carolina MD 1050 END OF REPORT * ML=Testing performed at Main Lab DEPARTMENT OF PATHOLOGY, [address] [place] [address] Mark Carolina M.D. Director [facility] # [id number] 32 Comment: copy of results to Dr. Hanson 33 SEE RESULT BELOW Name: KARO SALAMANCA : [address]: Juan David Villalobos MD Acct: [id number] Unit: [id number] AGE: 60 Location: [facility] Re11/20/15 SEX: F Status: REG REF SPEC: [id number] SHASHANK: 11/20/15-[address] [facility] [address]: Juan David Villalobos MD REQ: [id number] RECD: 11/20/15-1630 STATUS: DULCE PARRA DR: Hakeem Brewster DO _ SOURCE: GAS ANTRUM SPDESC: ORDERED: Clotest COMMENTS: Comment: copy of results to Dr. Hanson Procedure Result Reported Site Clotest Final 11/21/15925 ML Clotest Negative * ML - MAIN LAB (PSC1) . END OF REPORT * ML=Testing performed at Main Lab DEPARTMENT OF PATHOLOGY, [address] [place] [address] Mark Carolina M.D. Director [facility] # [id number] 34 Because ethnic data is not always readily available, this report includes an eGFR for both -Americans and non- Americans. The National Kidney Disease Education Program (NKDEP) does not endorse the use of the MDRD equation for patients that are not between the ages of 18 and 70, are , have extremes of body size, muscle mass, or nutritional status, or are non- or non-. According to the National Kidney Foundation, irrespective of diagnosis, the stage of the disease is based on the level of kidney function: Stage Description GFR(mL/min/1.73 m(2)) 1 Kidney damage with normal or decreased GFR 90 2 Kidney damage with mild decrease in GFR 60-89 3 Moderate decrease in GFR 30-59 4 Severe decrease in GFR 15-29 5 Kidney failure <15 (or dialysis) 35 Normal Range 180 to 914 Indeterminate Range 145 to 180 Deficient Range <145 36 PT IS FASTING 37 Desirable <150 Borderline high 150-199 High 200-499 Very High >500 38 Desirable <200 Borderline high 200-239 High >239 39 Low <40 Desirable: 40-60 High: >60 40 Desirable: <100 mg/dL Near Optimal: 100-129 mg/dL Borderline High: 130-159 mg/dL High: 160-189 mg/dL Very High: >189 mg/dL 41 PT IS FASTING 42 Because ethnic data is not always readily available, this report includes an eGFR for both -Americans and non- Americans. The National Kidney Disease Education Program (NKDEP) does not endorse the use of the MDRD equation for patients that are not between the ages of 18 and 70, are , have extremes of body size, muscle mass, or nutritional status, or are non- or non-. According to the National Kidney Foundation, irrespective of diagnosis, the stage of the disease is based on the level of kidney function: Stage Description GFR(mL/min/1.73 m(2)) 1 Kidney damage with normal or decreased GFR 90 2 Kidney damage with mild decrease in GFR 60-89 3 Moderate decrease in GFR 30-59 4 Severe decrease in GFR 15-29 5 Kidney failure <15 (or dialysis) 43 awaiting HPV results 44 RESULT: Ectocervical/Endocervical 45 The following Other High Risk HPV types were not detected: 31, 33, 35, 39, 45, 51, 52, 56, 58, 59, 66, and 68 Test Performed by: [facility] [place] [address] Syrup Machine Laborer: Hernán Clark III, M.D. 46 RUN DATE: 02/02/14 [facility] LAB LIVE PAGE 1 RUN TIME: [address] [place], [place] [address] Specimen Inquiry Name: SALAMANCAKWASIDYANA Velasco : [address]: Iona Tena MD Acct: [id number] Unit: [id number] AGE: 58 Location: [facility] Re02/01/14 SEX: F Status: REG REF SPEC: [id number] SHASHANK: 02/01/14-[address]: Iona Tena MD REQ: [id number] RECD: 02/01/146041 STATUS: SOUT _ ORDERED: IMAGE ANALYSIS, HPV/Thin Prep FINAL DIAGNOSIS Negative for Intraepithelial lesion or Malignancy COMMENTS: Specimen sent to [facility] in [place], [place] on 02/02/14 by [id number] at 1138. Results will be reported separately. A. Ectocervical/Endocervical Specimen Adequacy: Satisfactory of evaluation Transformation zone component identified Patient Information: HPV: High risk HPV DNA testing regardless of pap results. Actual Specimen Date: 02/01/14 LMP If Unknown: 2000 Cautery: N IUD: N Lesion, grossly demonstrate: N ?: N Post Menopausal?: Y Hysterectomy?: N Signed (signature on file) MAGY Oseguera (ASCP) 02/02/14 1143 This Pap test was evaluated with the assistance of the [employer] Test [employer] System. Due to cytologic findings at the sleeve baster microscope, comprehensive manual rescreening by a Dried Yeast Supervisor may be required. The Pap Smear is a screening test designed to aid in the detection of premalignant and malignant conditions of the uterine cervix. It is not a diagnostic procedure and should not be used as the sole means of detecting cervical cancer. Both false- positive and false- negative reports do occur. Depending on your risk status, a Pap smear shoudl be obtained and evaluated every 1-3 years. END OF REPORT * ML=Testing performed at Main Lab DEPARTMENT OF PATHOLOGY, [address] [place] [address] Mark Carolina M.D. Director [facility] # [id number] 47 Because ethnic data is not always readily available, this report includes an eGFR for both -Americans and non- Americans. The National Kidney Disease Education Program (NKDEP) does not endorse the use of the MDRD equation for patients that are not between the ages of 18 and 70, are , have extremes of body size, muscle mass, or nutritional status, or are non- or non-. According to the National Kidney Foundation, irrespective of diagnosis, the stage of the disease is based on the level of kidney function: Stage Description GFR(mL/min/1.73 m(2)) 1 Kidney damage with normal or decreased GFR 90 2 Kidney damage with mild decrease in GFR 60-89 3 Moderate decrease in GFR 30-59 4 Severe decrease in GFR 15-29 5 Kidney failure <15 (or dialysis) 48 Desirable <150 Borderline high 150-199 High 200-499 Very High >500 49 Desirable <200 Borderline high 200-239 High >239 50 Low <40 Desirable: 40-60 High: >60 51 Desirable <100 Near Optimal 100-129 Borderline high 130-159 High 160-189 Very High >189 52 RUN DATE: 08/17/13 [facility] LAB LIVE PAGE 1 RUN TIME: [address], [place] [address] Specimen Inquiry Name: KARO SALAMANCA : [address]: Juan David Villalobos MD Acct: [id number] Unit: [id number] AGE: 58 Location: ENDO Re08/16/13 SEX: F Status: REG REF SPEC: [id number] SHASHANK: 08/16/13- SUBM DR: Juan David Villalobos MD REQ: [id number] RECD: 08/16/13 STATUS: CHANDNI PARRA DR: Iona Tena MD _ ORDERED: LEVEL IV/5 FINAL DIAGNOSIS 1. Colon, descending, biopsy: Hyperplastic polyp. 2. Colon, transverse, biopsies: A. Tubular adenoma. B. No high grade dysplasia or malignancy. 3. Colon, right, biopsies: A. Tubular adenoma. B. No high grade dysplasia or malignancy. 4. Colon, proximal transverse, biopsy: Hyperplastic polyp. 5. Colon, 40 cm., biopsy: A. Tubular adenoma. B. No high grade dysplasia or malignancy. CLINICAL HISTORY High risk screening colonoscopy with family history of colon cancer and history of polyps POST-OPERATIVE DIAGNOSIS Screening colonoscopy into cecum, prep good - 5 small polyps removed CONTINUED ON NEXT PAGE * ML=Testing performed at Main Lab DEPARTMENT OF PATHOLOGY, [address] [place] [address] Mark Carolina M.D. Director [facility] Permit #[id number] RUN DATE: 08/17/13 [facility] LAB LIVE PAGE 2 RUN TIME: [address] [place] [address] Specimen Inquiry Patient: KARO SALAMANCA Rod [id number] (Continued) GROSS DESCRIPTION (Continued) GROSS DESCRIPTION 1. The specimen is received in formalin labeled [facility], Biopsy Descending Colon Polyp, and consists of a key, soft tissue fragment measuring 0.7 x 0.3 x 0.1 cm. Submitted entirely, one cassette. 2. The specimen is received in formalin labeled [facility], Biopsies Transverse Colon Polyp, and consists of multiple key, soft tissue fragments measuring 0.6 x 0.3 x 0.2 cm. Submitted entirely, one cassette. 3. The specimen is received in formalin labeled [facility]. Biopsies Right Colon Polyp, and consists of two key, soft tissue fragments measuring 0.5 x 0.3 x 0.2 cm. in aggregate. Submitted entirely, one cassette. 4. The specimen is received in formalin labeled [facility], Biopsy Proximal Transverse Colon Polyp, and consists of a key, soft tissue fragment measuring 0.2 x 0.2 x 0.2 cm. Submitted entirely, one cassette. 5. The specimen is received in formalin labeled [facility], Biopsy Colon Polyp at 40 cm., and consists of a key, soft tissue fragment measuring 0.3 x 0.2 x 0.2 cm. Submitted entirely, one cassette. 1. Signed (signature on file) Mark Carolina MD [id number] END OF REPORT * ML=Testing performed at Main Lab DEPARTMENT OF PATHOLOGY, [address] [place] [address] Mark Carolina M.D. Director [facility] Permit #[id number] The 24 hour volume of 400 mL from this urine collection is unusually low. To properly screen for cortisol metabolic problems, renal output of at least 500 mL per day is required. If this patient has significantly reduced renal function, suggest shipping support clerk serum cortisol (adrenal insufficiency) or a midnight salivary cortisol ([place]). 54 Test Performed by: [address] [address] [employer] Laborer: Hernán Clark III, M.D. 55 Because ethnic data is not always readily available, this report includes an eGFR for both -Americans and non- Americans. The National Kidney Disease Education Program (NKDEP) does not endorse the use of the MDRD equation for patients that are not between the ages of 18 and 70, are , have extremes of body size, muscle mass, or nutritional status, or are non- or non-. According to the National Kidney Foundation, irrespective of diagnosis, the stage of the disease is based on the level of kidney function: Stage Description GFR(mL/min/1.73 m(2)) 1 Kidney damage with normal or decreased GFR 90 2 Kidney damage with mild decrease in GFR 60-89 3 Moderate decrease in GFR 30-59 4 Severe decrease in GFR 15-29 5 Kidney failure <15 (or dialysis) 56 HDL Interpretation: Undesirable: High Risk: Less than 40 mg/dL Desirable: Low Risk: Greater than 60 mg/dL 57 LDL Interpretation: Low Risk Optimal Level: LDL Less than 100 mg/dL Near or Above Optimal: LDL 100-129 mg/dL Borderline High Risk: LDL 130-159 mg/dL High Risk: LDL 160-189 mg/dL Very High Risk: LDL Greater than 189 mg/dL 58 Microalbuminuria in a random sample is defined as: Microalbumin/Creatinine ratio of 30-299 ug/mg. 59 PT IS FASTING 60 PT IS FASTING 61 Anion gap measurement may be of limited value in the presence of any alkalosis, especially in a combined acid base disorder. . 62 A metabolite of Naproxen, O-desmethylnaproxen, has been shown to interfere with the Jendrassik-Bryan method for measuring total bilirubin. Samples from patients who have taken Naproxen have shown spurious elevation in total bilirubin levels. 63 Because ethnic data is not always readily available, this report includes an eGFR for both -Americans and non- Americans. The National Kidney Disease Education Program (NKDEP) does not endorse the use of the MDRD equation for patients that are not between the ages of 18 and 70, are , have extremes of body size, muscle mass, or nutritional status, or are non- or non-. According to the National Kidney Foundation, irrespective of diagnosis, the stage of the disease is based on the level of kidney function: Stage Description GFR(mL/min/1.73 m(2)) 1 Kidney damage with normal or decreased GFR 90 2 Kidney damage with mild decrease in GFR 60-89 3 Moderate decrease in GFR 30-59 4 Severe decrease in GFR 15-29 5 Kidney failure <15 (or dialysis) 64 CHOLESTEROL INTERPRETATION: Desirable: Less than 200 MG/DL Borderline-High Risk: 200-239 MG/DL High-Risk: 240 MG/DL and over 65 HDL INTERPRETATION: Undesirable: High Risk: Less than 40 MG/DL Desirable: Low Risk: Greater than 60 MG/DL 66 LDL INTERPRETATION: Low Risk Optimal Level: LDL Less than 100 MG/DL Near or Above Optimal: LDL 100-129 MG/DL Borderline High Risk: LDL 130-159 MG/DL High Risk: LDL 160-189 MG/DL Very High Risk: LDL Greater than 189 MG/DL 67 scant curretting benign 68 ---- RUN DATE: 12/19/10 [facility] NMI LIVE PAGE 1 RUN TIME: 1419 Specimen Inquiry RUN USER: INTERFACE -- [id number] Status: REG REF Re12/17/10 Age/Sex: 55/F Unit#: [id number] Location: [facility].B. : 59 -- Specimen: [id number] Spec Date: 12/17/[address] [facility] [address]: Irving berry MD Spec Type: SURGICAL P Received: 12/18/10-1342 Copies to: CYTOLOGY SPECIMEN ENDOCERVICAL CURRETAGE SCRAPINGS FROM COLPOSCOPY PROCEDURE HISTORY PRE-OP DIAGNOSIS: Abnormal pap. GROSS DESCRIPTION The specimen is received in formalin labelled [facility], and consists of several fragments of minute white tissue measuring in aggregate 0.4 x 0.4 x 0.2 cm. The specimen is filtered. Submitted entirely, one cassette. DIAGNOSIS Uterus, endocervical curettage: Mucous, rare fragments of endocervical glands and superficial fragments of squamous mucosa. Signed Electronically by: LINDA DICKERSON 12/19/10 1419 -- -- DEPARTMENT OF PATHOLOGY, [address] [place] [address] [facility] Permit #[id number] Mark Carolina M.D. Director Frederic Hassanor -- 71 12/19/10 waiting for HPV results. 72 ---- RUN DATE: 12/24/10 [facility] NMI LIVE PAGE 1 RUN TIME: 0832 Specimen Inquiry RUN USER: INTERFACE -- Name: KARO SALAMANCA Status: REG REF Re12/17/10 Age/Sex: 55/F Unit#: [id number] Location: [facility] : 59 -- Specimen: [id number] Spec Date: 12/17/[address]: Irving berry MD Spec Type: CYTOLOGY Received: 12/18/10-1436 Copies to: SOURCE ECTOCERVICAL/ENDOCERVICAL Thin Prep with Reflex HPV Test PATIENT INFORMATION ACTUAL COLLECTION DATE: 12/17/10 ? No POST MENOPAUSAL? Yes HYSTERECTOMY? No ADEQUACY OF SPECIMEN Satisfactory for evaluation * Transformation zone component identified * DIAGNOSIS NEGATIVE FOR INTRAEPITHELIAL LESION OR MALIGNANCY * NOTE Specimen sent to [facility] in [place], [place] on 12/19/10 by GVO at 0818. Results will be reported separately in an addendum. ADDENDUM Addendum #1 Entered: 12/24/10 [employer] Human Papilloma Virus test results received with preparation and diagnosis completed by [facility], [place], [place]. Results: POSITIVE High Risk (for one or more of types 16, 18, 31, 33, 35, 39, 45, 51, 52, 56, 58, 59, 68) These high/indeterminate risk HPV types are associated with dysplasia and some cervical cancers. -- DEPARTMENT OF PATHOLOGY, [address] [place] [address] [facility] Permit #[id number] Frederic Dejesus M.D. Receiver/Laborer Dir schmidt -- -- RUN DATE: 12/24/10 [facility] NMI LIVE PAGE 2 RUN TIME: 831 Specimen Inquiry RUN USER: INTERFACE -- Name: KARO SALAMANCA Status: REG REF Re12/17/10 Age/Sex: 55/F Unit#: [id number] Location: [facility] : 59 -- -- CONTINUED -- ADDENDUM (Continued) This test was developed and its performance characteristics determined by Laboratory Medicine and Pathology, [facility], [place], [place]. It has not been cleared or approved by the U.S. Food and Drug Administration. Test Performed by: [facility] Dpt of Lab Med and Pathology [address] [facility] [address] [employer] Laborer: Hernán Clark III, M.D. Original hard copy report from [employer] is available upon request by calling Pathology at [phone]. Addendum Review Logan STEINER CT([facility]) 12/24/10 -- This Pap test was evaluated with the assistance of the [employer] 3D Pap Test Imaging System. The Pap Smear is a screening test designed to aid in the detection of premalign ant and malignant conditions of the uterine cervix. It is not a diagnostic procedure a nd should not be used as the sole means of detecting cervical cancer. Both false- positiv e and false-negative reports do occur. Depending on your risk status, a Pap smear peri uld be obtained and evaluated every one to three years. Initial evaluation performed by Sinan DANIEL([facility]) 12/19/10 Final Interpretation electronically signed by: Sinan DANIEL([facility]) 12/19/10 1430 -- -- DEPARTMENT OF PATHOLOGY, [address] [place] [address] [facility] Permit #[id number] Mark Carolina M.D. Director Linda Dickerson M.D. Receiver/Laborer Dir brayan -- 71 Test Performed by: [facility] Dpt of Lab Med and Pathology [address] [place] [address] [employer]: Hernán Clark III, M.D. 72 THERAPEUTIC TARGET FOR THE TREATMENT OF DIABETES MELLITUS PATIENTS IS <7% HBA1C, AND IN SELECTIVE PATIENTS <6.0%. PLEASE REFER TO [place] DI[employer] ASSOCIATION DIABETIC CARE GUIDELINES FOR FURTHER INFORMATION. 73 Anion gap measurement may be of limited value in the presence of any alkalosis, especially in a combined acid base disorder. . 74 A metabolite of Naproxen, O-desmethylnaproxen, has been shown to interfere with the Jendrassik-Bryan method for measuring total bilirubin. Samples from patients who have taken Naproxen have shown spurious elevation in total bilirubin levels. 75 Because ethnic data is not always readily available, this report includes an eGFR for both -Americans and non- Americans. The National Kidney Disease Education Program (NKDEP) does not endorse the use of the MDRD equation for patients that are not between the ages of 18 and 70, are , have extremes of body size, muscle mass, or nutritional status, or are non- or non-. According to the National Kidney Foundation, irrespective of diagnosis, the stage of the disease is based on the level of kidney function: Stage Description GFR(mL/min/1.73 m(2)) 1 Kidney damage with normal or decreased GFR 90 2 Kidney damage with mild decrease in GFR 60-89 3 Moderate decrease in GFR 30-59 4 Severe decrease in GFR 15-29 5 Kidney failure <15 (or dialysis) 76 CHOLESTEROL INTERPRETATION: Desirable: Less than 200 MG/DL Borderline-High Risk: 200-239 MG/DL High-Risk: 240 MG/DL and over 77 HDL INTERPRETATION: Undesirable: High Risk: Less than 40 MG/DL Desirable: Low Risk: Greater than 60 MG/DL 78 LDL INTERPRETATION: Low Risk Optimal Level: LDL Less than 100 MG/DL Near or Above Optimal: LDL 100-129 MG/DL Borderline High Risk: LDL 130-159 MG/DL High Risk: LDL 160-189 MG/DL Very High Risk: LDL Greater than 189 MG/DL 79 ---- RUN DATE: 07/23/10 [facility] NMI LIVE PAGE 1 RUN TIME: 1116 Specimen Inquiry RUN USER: INTERFACE -- Name: KARO SALAMANCA Accmarlon#: [id number] Status: REG REF Re07/19/10 Age/Sex: 55/F Unit#: [id number] Location: [facility] : 59 -- Specimen: [id number] SOUMarlon Spec Date: 07/19/[address]: Juan David romero MD Spec Type: SURGICAL P Received: 07/20/10-0840 Copies to: Iona Ford SPECIMEN 1) BIOPSY POLYP AT HEPATIC FLEXURE 2) BIOPSY POLYP AT TRANSVERSE COLON 3) BIOPSY POLYP DESCENDING COLON 4) BIOPSY SMALL POLYP DESCENDING COLON 5) BIOPSY COLON POLYP AT 10 CM. HISTORY POST-OP DIAGNOSIS: Colonoscopy to cecum, prep good, five polyps removed CLINICAL INFORMATION: Screening colonoscopy; positive family history of c olon cancer (sister) GROSS DESCRIPTION 1) The specimen is received in formalin labelled [facility], Polyp at Hepatic Flexure, and consists of multiple fragments of dark brown tissue measuring in aggregate 1.8 x 1.0 x 1.0 cm. Submitted entirely, one cassette labelled 1. 2) The specimen is received in formalin labelled [facility], Biopsy Polyp at Transverse Colon, and consists of four fragments of yellow tissue measuring in aggregate 0.4 x 0.4 x 0.3 cm. Submitted entirely, one cassette labelled 2. 3) The specimen is received in formalin labelled [facility], Biopsy Polyp Descending Colon, and consists of one fragment of yellow-brown tissue measuring 1.2 x 1.0 x 0.5 cm. Submitted entirely, one cassette labelled 3. 4) The specimen is received in formalin labelled [facility], Biopsy Small Polyp Descending Colon, and consists of one fragment of yellow tissue measuring 0.2 x 0.3 x 0.2 cm. Submitted entirely, one cassette labelled 4. 5) The specimen is received in formalin labelled [facility], Biopsy Colon Polyp at 10 cm., and consists of one fragment of yellow tissue measuring 0.2 x 0.2 x 0.2 cm. Submitted entirely, one cassette labelled 5. -- DEPARTMENT OF PATHOLOGY, [address] [place] [address] [facility] Permit #[id number] Frederic Dejesus M.D. Assistant Dir ector -- -- RUN DATE: 07/23/10 [facility] NMI LIVE PAGE 2 RUN TIME: 1116 Specimen Inquiry RUN USER: INTERFACE -- Name: KARO SALAMANCA Accmarlon#: [id number] Status: REG REF Re07/19/10 Age/Sex: 55/F Unit#: [id number] Location: [facility]. : 59 -- -- CONTINUED -- DIAGNOSIS 1) Colon at hepatic flexure, biopsy: A. Tubulovillous adenoma. B. No high grade dysplasia or malignancy. 2) Transverse colon, biopsy: A. Tubular adenoma. B. No high grade dysplasia or malignancy. 3) Descending colon, biopsy: A. Tubular adenoma. B. No high grade dysplasia or malignancy. 4) Descending colon polyp, biopsy: Hyperplastic polyp. 5) Colon at 10 cm., biopsy: Hyperplastic polyp. Signed Electronically by: LINDA DICKERSON 07/23/10 1116 -- -- DEPARTMENT OF PATHOLOGY, [address] [place] [address] [facility] Permit #[id number] Mark Carolina M.D. Director Linda Dickerson M.D. Receiver/Laborer Dir brayan -- 80 CHOLESTEROL INTERPRETATION: Desirable: Less than 200 MG/DL Borderline-High Risk: 200-239 MG/DL High-Risk: 240 MG/DL and over 81 HDL INTERPRETATION: Undesirable: High Risk: Less than 40 MG/DL Desirable: Low Risk: Greater than 60 MG/DL 82 UNABLE TO CALCULATE LDL TRIGLYCERIDE IS > 400 83 THERAPEUTIC TARGET FOR THE TREATMENT OF DIABETES MELLITUS PATIENTS IS <7% HBA1C, AND IN SELECTIVE PATIENTS <6.0%. PLEASE REFER TO [place] DI[employer] ASSOCIATION DIABETIC CARE GUIDELINES FOR FURTHER INFORMATION. 84 Anion gap measurement may be of limited value in the presence of any alkalosis, especially in a combined acid base disorder. . 85 Note change in reference range as of 04/21/08. The change was based on recommendations from the [place] [employer]. 86 Because ethnic data is not always readily available, this report includes an eGFR for both -Americans and non- Americans. The National Kidney Disease Education Program (NKDEP) does not endorse the use of the MDRD equation for patients that are not between the ages of 18 and 70, are , have extremes of body size, muscle mass, or nutritional status, or are non- or non-. According to the National Kidney Foundation, irrespective of diagnosis, the stage of the disease is based on the level of kidney function: Stage Description GFR(mL/min/1.73 m(2)) 1 Kidney damage with normal or decreased GFR 90 2 Kidney damage with mild decrease in GFR 60-89 3 Moderate decrease in GFR 30-59 4 Severe decrease in GFR 15-29 5 Kidney failure <15 (or dialysis) 87 Test Performed by: [facility] Dpt of Lab Med and Pathology [address] [place] [address] [employer]: Hernán Clark III, M.D. 88 THERAPEUTIC TARGET FOR THE TREATMENT OF DIABETES MELLITUS PATIENTS IS <7% HBA1C, AND IN SELECTIVE PATIENTS <6.0%. PLEASE REFER TO [place] [employer] ASSOCIATION DIABETIC CARE GUIDELINES FOR FURTHER INFORMATION. 89 Anion gap measurement may be of limited value in the presence of any alkalosis, especially in a combined acid base disorder. . 90 Note change in reference range as of 04/21/08. The change was based on recommendations from the [place] [employer]. 91 A metabolite of Naproxen, O-desmethylnaproxen, has been shown to interfere with the Jendrassik-Bryan method for measuring total bilirubin. Samples from patients who have taken Naproxen have shown spurious elevation in total bilirubin levels. 92 Because ethnic data is not always readily available, this report includes an eGFR for both -Americans and non- Americans. The National Kidney Disease Education Program (NKDEP) does not endorse the use of the MDRD equation for patients that are not between the ages of 18 and 70, are , have extremes of body size, muscle mass, or nutritional status, or are non- or non-. According to the National Kidney Foundation, irrespective of diagnosis, the stage of the disease is based on the level of kidney function: Stage Description GFR(mL/min/1.73 m(2)) 1 Kidney damage with normal or decreased GFR 90 2 Kidney damage with mild decrease in GFR 60-89 3 Moderate decrease in GFR 30-59 4 Severe decrease in GFR 15-29 5 Kidney failure <15 (or dialysis) 93 THERAPEUTIC TARGET FOR THE TREATMENT OF DIABETES MELLITUS PATIENTS IS <7% HBA1C, AND IN SELECTIVE PATIENTS <6.0%. PLEASE REFER TO [place] DI[employer] ASSOCIATION DIABETIC CARE GUIDELINES FOR FURTHER INFORMATION. 94 LDL INTERPRETATION: Low Risk Optimal Level: LDL Less than 100 MG/DL Near or Above Optimal: LDL 100-129 MG/DL Borderline High Risk: LDL 130-159 MG/DL High Risk: LDL 160-189 MG/DL Very High Risk: LDL Greater than 189 MG/DL 95 Note change in reference range as of 04/21/08. The change was based on recommendations from the [place] [employer]. 96 CHOLESTEROL INTERPRETATION: Desirable: Less than 200 MG/DL Borderline-High Risk: 200-239 MG/DL High-Risk: 240 MG/DL and over 97 HDL INTERPRETATION: Undesirable: High Risk: Less than 40 MG/DL Desirable: Low Risk: Greater than 60 MG/DL 98 LDL INTERPRETATION: Low Risk Optimal Level: LDL Less than 100 MG/DL Near or Above Optimal: LDL 100-129 MG/DL Borderline High Risk: LDL 130-159 MG/DL High Risk: LDL 160-189 MG/DL Very High Risk: LDL Greater than 189 MG/DL 99 Anion gap measurement may be of limited value in the presence of any alkalosis, especially in a combined acid base disorder. . 10 Note change in reference range as of 04/21/08. The 0 change was based on recommendations from the [place] [employer]. 10 Please note change in reference range effective 08 1 . 10 A metabolite of Naproxen, O-desmethylnaproxen, has been 2 shown to interfere with the Jendrashik-[place] method for measuring total bilirubin. Samples from patients who have taken Naproxen have shown spurious elevation in total bilirubin levels. 10 Because ethnic data is not always readily available, 3 this report includes an eGFR for both -Americans and non- Americans. The National Kidney Disease Education Program (NKDEP) does not endorse the use of the MDRD equation for patients that are not between the ages of 18 and 70, are , have extremes of body size, muscle mass, or nutritional status, or are non- or non-. According to the National Kidney Foundation, irrespective of diagnosis, the stage of the disease is based on the level of kidney function: Stage Description GFR(mL/min/1.73 m(2)) 1 Kidney damage with normal or decreased GFR 90 2 Kidney damage with mild decrease in GFR 60-89 3 Moderate decrease in GFR 30-59 4 Severe decrease in GFR 15-29 5 Kidney failure <15 (or dialysis) 10 CHOLESTEROL INTERPRETATION: 4 Desirable: Less than 200 MG/DL Borderline-High Risk: 200-239 MG/DL High-Risk: 240 MG/DL and over 10 HDL INTERPRETATION: 5 Undesirable: High Risk: Less than 40 MG/DL Desirable: Low Risk: Greater than 60 MG/DL 10 UNABLE TO CALCULATE LDL TRIGLYCERIDE IS > 400 6 10 MINA 2 w hpv benign endocerv sampling 7 10 ---- 8 RUN DATE: 04/10/10 [facility] NMI LIVE PAGE 1 RUN TIME: 1233 Specimen Inquiry RUN USER: INTERFACE -- Name: KARO SALAMANCA [facility]#: [id number] Status: REG REF Re04/06/10 Age/Sex: 54/F Unit#: [id number] [facility] : 59 -- Specimen: [id number] [facility] Spec Date: 04/06/[address]: Irving berry MD Spec Type: SURGICAL P Received: 04/09/10-1407 Copies to: CYTOLOGY SPECIMEN 1) AREA A,B AT SIX O'CLOCK ON CERVIX 2) ENDOCERVICAL CURRETAGE HISTORY PRE-OP DIAGNOSIS: Abnormal Pap 03/29/10. GROSS DESCRIPTION 1) The specimen is received in formalin labelled [facility], Cervix A plus B area at six o'clock and consists of multiple key soft tissue fragments measuring 0.2 x 0.2 x 0.1 cm. in aggregate . Submitted entirely, one cassette. 2) The specimen is received in formalin labelled [facility], Endocervical Curettage and consists of multiple key mucoid soft tissue fragments measuring 0.8 x 0.5 x 0.2 cm. Submitted entirely, one cassette. 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 2) Uterus, endocervix, curettage: A) Low grade squamous intraepithelial lesion (condyloma). B) Benign endocervical glandular epithelium and mucus. C) No high grade dysplasia is identified. Signed Electronically by: MARK CAROLINA MD 04/10/10 1230 -- -- DEPARTMENT OF PATHOLOGY, [address] [place] [address] [facility] Permit #[id number] Mark Carolina M.D. Director Linda Dickerson M.D. Receiver/Laborer Dir brayan -- 10 no pap done hpv pos hi risk 9 11 ---- 0 RUN DATE: 04/11/10 [facility] NMI LIVE PAGE 1 RUN TIME: 3386 Specimen Inquiry RUN USER: INTERFACE -- [id number] Status: REG REF Re04/06/10 Age/Sex: 54/F Unit#: [id number] Location: [facility]. : 59 -- Spec[id number] [facility] Spec Date: 04/06/[address]: Irving berry MD Spec Type: CYTOLOGY Received: 04/09/10-3276 Copies to: SOURCE ECTOCERVICAL/ENDOCERVICAL High Risk HPV DNA Testing Only PATIENT INFORMATION ACTUAL COLLECTION DATE: 04/06/10 ? No POST MENOPAUSAL? Yes HYSTERECTOMY? No PREVIOUS ABNORMAL PAP SMEARS Yes If YES, diagnosis: 03/29/10 PATIENT HISTORY: Last menstrual period 1999 DIAGNOSIS High Risk HPV DNA testing only is requested by clinician. NOTE Specimen sent to [facility] in [place], [place] on 04/09/10 by DB at 3385. Results will be reported separately in an addendum. ADDENDUM Addendum #1 Entered: 04/11/103089 [employer] Human Papilloma Virus test results received with preparation and diagnosis completed by [facility], [place], [place]. Results: POSITIVE High Risk (for one or more of types 16, 18, 31, 33, 35, 39, 45, 51, 52, 56, 58, 59, 68) These high/indeterminate risk HPV types are associated with dysplasia and some cervical cancers. This test was developed and its performance characteristics determined by Laboratory Medicine and Pathology, [facility], [place], [place]. It has not -- DEPARTMENT OF PATHOLOGY, [address] [place] [address] [facility] Permit #[id number] Frederic Dejesus M.D. Receiver/Laborer brayan -- -- RUN DATE: 04/11/10 [facility] NMI LIVE PAGE 2 RUN TIME: 0802 Specimen Inquiry RUN USER: INTERFACE -- Name: KARO SALAMANCA Status: REG REF Re04/06/10 Age/Sex: 54/F Unit#: [id number] Location: [facility] : 59 -- -- CONTINUED -- ADDENDUM (Continued) been cleared or approved by the U.S. Food and Drug Administration. Test Performed by: [facility] Dpt of Lab Med and Pathology [address] [place] [address] [employer] Laborer: Hernán Clark III, M.D. Original hard copy report from [facility] is available upon request by calling Pathology at [phone]. Addendum Review Logan STEINER([facility]) 04/11/10 -- Final Interpretation electronically signed by: Logan STEINER([facility]) 04/09/10 134 9 -- -- DEPARTMENT OF PATHOLOGY, [address] [place] [address] [facility] Permit #[id number] Mark Carolina M.D. Director Linda Dickerson M.D. Receiver/Laborer Dir brayan -- MINA 2,3 - 1 11 ---- 2 RUN DATE: 03/30/10 [facility] NMI LIVE PAGE 1 RUN TIME: 5968 Specimen Inquiry RUN USER: INTERFACE -- Name: KARO SALAMANCA Status: REG REF Re03/29/10 Age/Sex: 54/F Unit#: [id number] Location: [facility] : 59 -- Specimen: [id number] SOUT Spec Date: 03/29/[address]: Iona Tena MD Spec Type: CYTOLOGY Received: 03/30/100829 Copies to: SOURCE ECTOCERVICAL/ENDOCERVICAL Thin Prep with Reflex HPV Test PATIENT INFORMATION ACTUAL COLLECTION DATE: 03/29/10 ? No HYSTERECTOMY? No PATIENT HISTORY: Last menstrual period Unknown ADEQUACY OF SPECIMEN Satisfactory for evaluation * Transformation zone component identified * DIAGNOSIS EPITHELIAL CELL ABNORMALITIES * High grade squamous intraepithelial lesion (HSIL) encompassing: modera te and * severe dysplasia, CIS/CIN2 and CIN3 * SUGGESTIONS Consider colposcopy with endocervical assessment and endometrial sampling if >35 years or abnormal bleeding, if clinically indicated * This Pap test was evaluated with the assistance of the [employer] Pap Test Imaging System. Due to cytologic findings at the sleeve baster microscope, comprehensive manual rescreening by a Dried Yeast Supervisor was required. The Pap Smear is a screening test designed to aid in the detection of premalign ant and malignant conditions of the uterine cervix. It is not a diagnostic procedure a nd should not be used as the sole means of detecting cervical cancer. Both false- positiv e and false-negative reports do occur. Depending on your risk status, a Pap smear peri uld be obtained and evaluated every one to three years. -- DEPARTMENT OF PATHOLOGY, [address] [place] [address] [facility] Permit #[id number] Frederic Dejesus M.D. Receiver/Laborer brayan -- -- RUN DATE: 03/30/10 [facility] NMI LIVE PAGE 2 RUN TIME: 4848 Specimen Inquiry RUN USER: INTERFACE -- Name: KARO SALAMANCA Accmarlon#: [id number] Status: REG REF Re03/29/10 Age/Sex: 54/F Unit#: [id number] Location: [facility] : 57 -- -- CONTINUED -- Initial evaluation performed by Sinan DANIEL([facility]) 03/30/10 Final Interpretation electronically signed by: MARK CAROLINA MD 03/30/10 14 47 -- -- DEPARTMENT OF PATHOLOGY, [address] [place] [address] [facility] Permit #[id number] Frederic Dejesus M.D. Receiver/Laborer Dir schmidt -- 11 H H Check Failed 3 11 BRETT VALUE=2.01 ( OF 08/07/07 4 Recommended INR for Patients on Oral Anticoagulants Prophylaxis 2.0 - 3.0 Treatment of thrombosis 2.0 - 3.0 Prevention of embolism 2.0 - 3.0 Prevention of embolism from prosthetic heart valves 2.5 - 3.5 11 PLEASE NOTE NEW REFERENCE RANGE EFFECTIVE 08. 5 11 Please note: 6 The following may produce a false positive D Dimer test: - Rheumatoid factor greater than 60 IU/ml - Plasma hemoglobin greater than 0.05 gm/dl - Bilirubin greater than 50 mg/dl - Lipids greater than 1000 mg/dl - FDP greater than 20 ug/ml . 11 New Reference Range and Interpretation effective 06/04/02 7 TnI (ng/ml) INTERPRETATION <0.06 ng/ml NOT SUPPORTIVE OF DIAGNOSIS OF GA 0.06 - 0.50 ng/ml INDETERMINATE: SUGGEST SERIAL STUDIES IF CLINICALLY INDICATED. > 0.5 ng/ml CONSISTENT WITH DIAGNOSIS OF GA . 11 Anion gap measurement may be of limited value in the 8 presence of any alkalosis, especially in a combined acid base disorder. . 11 Note change in reference range as of 04/21/08. The 9 change was based on recommendations from the [place] [employer]. 12 Please note change in reference range effective 08 0 . 12 THERAPEUTIC TARGET FOR THE TREATMENT OF DIABETES 1 MELLITUS PATIENTS IS <7% HBA1C, AND IN SELECTIVE PATIENTS <6.0%. PLEASE REFER TO [place] [employer] DIABETIC CARE GUIDELINES FOR FURTHER INFORMATION. 12 Anion gap measurement may be of limited value in the 2 presence of any alkalosis, especially in a combined acid base disorder. . 12 Note change in reference range as of 04/21/08. The 3 change was based on recommendations from the [place] [employer]. 12 Please note change in reference range effective 08 4 . 12 CHOLESTEROL INTERPRETATION: 5 Desirable: Less than 200 MG/DL Borderline-High Risk: 200-239 MG/DL High-Risk: 240 MG/DL and over 12 HDL INTERPRETATION: 6 Undesirable: High Risk: Less than 40 MG/DL Desirable: Low Risk: Greater than 60 MG/DL 12 LDL INTERPRETATION: 7 Low Risk Optimal Level: LDL Less than 100 MG/DL Near or Above Optimal: LDL 100-129 MG/DL Borderline High Risk: LDL 130-159 MG/DL High Risk: LDL 160-189 MG/DL Very High Risk: LDL Greater than 189 MG/DL 12 Classification: Borderline High 8 . 12 CALCULATED LDL APPROXIMATES THE VALUE OF A DIRECT LDL 9 MEASUREMENT. Classification: Near or above optimal . 13 Anion gap measurement may be of limited value in the 0 presence of any alkalosis, especially in a combined acid base disorder. . 13 ---- 1 RUN DATE: 04/07/07 [facility] NMI LIVE PAGE 1 RUN TIME: 1549 Specimen Inquiry RUN USER: INTERFACE [id number] KARO SALAMANCA 51/F <REG REF 04/02> ([id number]) Iona Rojas MD -- Specimen: [id number] SOUT Spec Date: 04/02/[address]: Iona Tena MD Spec Type: CYTOLOGY Received: 04/03/07 Copies to: SOURCE ECTOCERVICAL/ENDOCERVICAL Thin Prep with Reflex HPV Test PATIENT INFORMATION ACTUAL COLLECTION DATE: 04/02/07 ? NO POST MENOPAUSAL? Yes HYSTERECTOMY? No ADEQUACY OF SPECIMEN Satisfactory for evaluation * Transformation zone component identified * DIAGNOSIS NEGATIVE FOR INTRAEPITHELIAL LESION OR MALIGNANCY * This Pap test was evaluated with the assistance of the ThinPrep Pap Test Imaging System. The Pap Smear is a screening test designed to aid in the detection of premalign ant and malignant conditions of the uterine cervix. It is not a diagnostic procedure a nd should not be used as the sole means of detecting cervical cancer. Both false- positive and false-negative reports do occur. Depending on your risk status, a Pap smear peri uld be obtained and evaluated every one to three years. Final Interpretation electronically signed by: Sinan DANIEL([facility]) 04/07/07 1549 -- -- DEPARTMENT OF PATHOLOGY, [address] [place] [address] [facility] Permit #[id number] Irving Turner II, M.D. Director Frederic Dejesus irector -- 13 CALL MD SKILLED NURSING FACILITY COUNSELOR ONLY IF ABNORMAL 2 13 CONFIRMED BY WBC ESTIMATE 3 13 WBC Interference 4 13 Anion gap measurement may be of limited value in the 5 presence of any alkalosis, especially in a combined acid base disorder. . 13 6 RESULTS VERIFIED BY REPEAT ANALYSIS ON THE SAME SAMPLE. REPEATED RESULT IS 0.05. New Reference Range and Interpretation effective 06/04/02 TnI (ng/ml) INTERPRETATION <0.06 ng/ml NOT SUPPORTIVE OF DIAGNOSIS OF GA 0.06 - 0.50 ng/ml INDETERMINATE: SUGGEST SERIAL STUDIES IF CLINICALLY INDICATED. > 0.5 ng/ml CONSISTENT WITH DIAGNOSIS OF GA . 13 7 Please note: The following may produce a false positive D Dimer test: - Rheumatoid factor greater than 60 IU/ml - Plasma hemoglobin greater than 0.05 gm/dl - Bilirubin greater than 50 mg/dl - Lipids greater than 1000 mg/dl - FDP greater than 20 ug/ml . 13 Run: 01/20/06 1213 LIS Specimen Inquiry 8 Run User: INTERFACE -- Name: SALAMANCAKARO Age/Sex: 50/F Location[facility]#: [id number] Unit#: [id number] Status: [facility] Room/Bed: Re01/14/06 Disch: Att Dr: Iona Tena MD. -- Spec #: [id number] Recd: 01/20/06 Status: [facility] #: [id number] SpType: CYTOLOGY Sub Dr: Iona Tena MD. ADEQUACY OF SPECIMEN Satisfactory for evaluation * Transformation zone component identified * DIAGNOSIS NEGATIVE FOR INTRAEPITHELIAL LESION OR MALIGNANCY * CYTOLOGY HISTORY CAUTERY? NO HORMONES? (name NO LESION VISIBLE? NO INFECTIOUS SPECIMEN? NO SOURCE ECTOCERVICAL/ENDOCERVICAL Thin Prep with Reflex HPV Test The Pap Smear is a screening test designed to aid in the detection of premalign ant and malignant conditions of the uterine cervix. It is not a diagnostic procedure an d should not be used as the sole means of detecting cervical cancer. Both false-positive and false-negative reports do occur. Depending on your risk status, a Pap smear peri uld be obtained and evaluated every one to three years. PATIENT INFORMATION ACTUAL COLLECTION DATE: 01/14/06 ? NO POST MENOPAUSAL? Yes HYSTERECTOMY? No PREVIOUS ABNORMAL PAP SMEARS No LAST MENSTRUAL PERIOD: 09/01/99 -- Signed Sinan DANIEL CT(ASCP) 01/20/06 -- END OF REPORT 13 Anion gap measurement may be of limited value in the 9 presence of any alkalosis, especially in a combined acid base disorder. . Procedures Date Code Description Status 11/24/2017 66774 Brief Emotional/Behav Assessment W/ Scoring Doc Per Completed Standard Inst 09/29/2017 [id number] Diabetic Retinal Eye Exam Completed 09/26/2017 [id number] Diabetic Foot Exam Completed 01/31/2017 14872 Dexa Bone Density Study One Or More Sites Axial Completed Skeleton 01/30/2017 [id number] Mammogram Completed 11/28/2016 00562 Inject/Drain Joint/Bursa Major Completed 08/01/2016 [id number] Colonoscopy Completed 01/25/2014 01806 Electrocardiogram Complete Completed 01/28/2013 24400 Electrocardiogram Complete Completed 12/17/2010 19896 Colposcopy W/Biopsy Cervix/Endocervical Curettage Completed 12/17/2010 85374 Colposcopy W/Biopsy Cervix/Endocervical Curettage Completed 12/17/2010 52254 Colposcopy W/Biopsy Cervix/Endocervical Curettage Completed 06/11/2010 47119 Cryocautery Of Cervix Completed 06/05/2010 78976 Electrocardiogram Complete Completed 04/06/2010 55504 Colposcopy W/Biopsy Cervix/Endocervical Curettage Completed 02/28/2009 61542 X-Ray Chest Two Views Completed 02/21/2009 52729 Bronchospasm Evaluation Pre & Post Completed 10/11/2008 80974 Bronchospasm Evaluation Pre & Post Completed 10/11/2008 77666 Electrocardiogram Complete Completed 09/01/2008 [id number] Bone Mineral Density Test Completed 03/27/2006 28450 Electrocardiogram Complete Completed 01/14/2006 95508 Electrocardiogram Complete Completed 12/19/2005 77969 X-Ray Chest Two Views Completed Encounters Type Date Location Provider Dx Diagnosis Office Visit 06/30/2018 Main Office Sparkle Guerrero PA Z00.00 Encntr for general 10:05a adult medical exam w/o abnormal findings Z12.4 Encounter for screening for malignant neoplasm of cervix E66.9 Obesity, unspecified E11.9 Type 2 diabetes mellitus without complications I10 Essential (primary) hypertension M54.5 Low back pain B37.3 Candidiasis of vulva and vagina Z71.89 Other specified counseling Office Visit 05/26/2018 11:15a Main Office Hakeem Brewster, E11.9 Type 2 diabetes D.O. mellitus without complications I10 Essential (primary) hypertension F33.9 Major depressive disorder, recurrent, unspecified F41.1 Generalized anxiety disorder M54.17 Radiculopathy, lumbosacral region E78.2 Mixed hyperlipidemia Office Visit 11/24/2017 3:30p Main Office Hakeem Brewster, F33.9 Major depressive D.O. disorder, recurrent, unspecified E11.9 Type 2 diabetes mellitus without complications F41.1 Generalized anxiety disorder I10 Essential (primary) hypertension Z23 Encounter for immunization Z41.8 Encntr for oth proc for purpose oth [facility] Z13.89 Encounter for screening for other disorder Office Visit 09/26/2017 9:45a Main Office Hakeem Brewster, E11.9 Type 2 diabetes D.O. mellitus without complications F33.9 Major depressive disorder, recurrent, unspecified F41.1 Generalized anxiety disorder Office Visit 09/03/2017 10:40a Main Office Sparkle Guerrero, M54.17 Radiculopathy, PA lumbosacral region Office Visit 05/29/2017 3:15p Main Office Sparkle Guerrero, H66.91 Otitis media, PA unspecified, right ear H60.91 Unspecified otitis externa, right ear Office Visit 05/21/2017 11:00a Main Office Cesar Sparkle, H66.91 Otitis media, PA unspecified, right ear Office Visit 04/08/2017 11:00a Main Office Naty Sumner, M25.552 Pain in left hip P.A. E11.9 Type 2 diabetes mellitus without complications I10 Essential (primary) hypertension Office Visit 01/31/2017 3:30p Main Office Hakeem Brewster, M85.9 Disorder of bone D.O. density and structure, unspecified E11.9 Type 2 diabetes mellitus without complications I10 Essential (primary) hypertension Z00.00 Encntr for general adult medical exam w/o abnormal findings F43.23 Adjustment disorder with mixed anxiety and depressed mood M54.5 Low back pain Z12.31 Encntr screen mammogram for malignant neoplasm of breast Office Visit 11/28/2016 8:45a Main Office Hakeem Brewster, E11.9 Type 2 diabetes D.O. mellitus without complications I10 Essential (primary) hypertension F43.23 Adjustment disorder with mixed anxiety and depressed mood M19.012 Primary osteoarthritis, left shoulder Office Visit 10/24/2016 3:00p Main Office Hakeem Brewster DSalazarOSalazar R05 Cough J01.00 Acute maxillary sinusitis, unspecified Office Visit 08/29/2016 8:30a Main Office Hakeem Brewster, E11.9 Type 2 diabetes D.O. mellitus without complications I10 Essential (primary) hypertension E78.2 Mixed hyperlipidemia K21.9 Gastro-esophageal reflux disease without esophagitis Office Visit 05/28/2016 9:45a Main Office Hakeem Brewster, E11.9 Type 2 diabetes D.O. mellitus without complications E78.2 Mixed hyperlipidemia I10 Essential (primary) hypertension K21.9 Gastro-esophageal reflux disease without esophagitis Office Visit 03/07/2016 5:15p Main Office Hakeem Brewster D.O. M54.5 Low back pain E11.9 Type 2 diabetes mellitus without complications E78.2 Mixed hyperlipidemia I10 Essential (primary) hypertension K21.9 Gastro-esophageal reflux disease without esophagitis Office Visit 02/26/2016 10:00a Main Office Hakeem Brewster, E11.9 Type 2 diabetes D.O. mellitus without complications E78.2 Mixed hyperlipidemia I10 Essential (primary) hypertension K21.9 Gastro-esophageal reflux disease without esophagitis E88.81 Metabolic syndrome F43.22 Adjustment disorder with anxiety Office Visit 11/10/2015 11:00a Main Office Hakeem Brewster E11.9 Type 2 diabetes D.O. mellitus without complications I10 Essential (primary) hypertension K21.9 Gastro-esophageal reflux disease without esophagitis E88.81 Metabolic syndrome Z68.37 Body mass index (BMI) 37.0-37.9, adult Office Visit 08/21/2015 1:45p Main Office Hakeem Brewster, E11.9 Type 2 diabetes D.O. mellitus without complications F43.22 Adjustment disorder with anxiety Office Visit 07/07/2015 10:30a Main Office Hakeem Brewster, I10 Essential ( primary) D.O. hypertension E11.9 Type 2 diabetes mellitus without complications R20.0 Anesthesia of skin M54.12 Radiculopathy, cervical region M79.1 Myalgia Office Visit 01/11/2015 10:00a Main Office Iona Tena MD 250.00 Diabetes Mellitus W/O Compl Type II Or Unspec Controlled 401.1 Hypertension Benign V76.10 Screening For Malignant Neoplasm Breast V75.9 Screening Examination Infectious Disease Unspec 110.4 Dermatophytosis Foot Office Visit 10/25/2014 10:45a Main Office Iona Tena MD 250.00 Diabetes Mellitus W/O Compl Type II Or Unspec Controlled 401.1 Hypertension Benign 493.10 Asthma Intrinsic Unspecified Office Visit 02/01/2014 9:30a Main Office Iona Tena MD 401.1 Hypertension Benign 250.00 Diabetes Mellitus W/O Compl Type II Or Unspec Controlled 780.4 Dizziness & Giddiness 477.9 Rhinitis Allergic Cause Unspec 278.01 Obesity Morbid 493.10 Asthma Intrinsic Unspecified V76.10 Screening For Malignant Neoplasm Breast V72.31 Routine Invoice Checker Examination 389.9 Hearing Loss Unspec v70.0 Examination General Medical Routine AT Health Care Facility Office Visit 01/25/2014 11:30a Main Office Iona Tena MD 780.4 Dizziness & Giddiness 401.1 Hypertension Benign 250.00 Diabetes Mellitus W/O Compl Type II Or Unspec Controlled 477.9 Rhinitis Allergic Cause Unspec 309.28 Adjustment Disorder With Anxiety/Depression Office Visit 11/11/2013 1:45p Main Office Iona Tena MD 250.00 Diabetes Mellitus W/O Compl Type II Or Unspec Controlled 709.00 Dyschromia Unspec 401.1 Hypertension Benign Office Visit 07/07/2013 10:15a Main Office Iona Tena MD 401.1 Hypertension Benign 309.28 Adjustment Disorder With Anxiety/Depression V76.51 Special Screening For Malignant Neoplasms Colon Office Visit 05/25/2013 10:45a Main Office Iona Tena MD 250.00 Diabetes Mellitus W/O Compl Type II Or Unspec Controlled 309.28 Adjustment Disorder With Anxiety/Depression 401.1 Hypertension Benign 780.52 Insomnia Unspecified Office Visit 01/28/2013 1:45p Main Office Iona Tena MD V70.0 Examination General Medical Routine AT Health Care Facility 250.00 Diabetes Mellitus W/O Compl Type II Or Unspec Controlled 401.1 Hypertension Benign 278.01 Obesity Morbid 493.10 Asthma Intrinsic Unspecified 530.81 Esophageal Reflux 786.2 Cough V76.19 Screening Breast Exam Malignant Neoplasms Other V76.51 Special Screening For Malignant Neoplasms Colon V16.0 History Family Malignant Neoplasm Gastrointestinal Tract 719.46 Pain Joint Lower Leg Office Visit 05/07/2012 10:20a Main Office Naty Sumner, 401.1 Hypertension Benign P.A. 386.10 Vertigo Peripheral Unspec 726.19 Shoulder Disorders Other Spec Office Visit 04/16/2012 4:20p Main Office Naty Sumner, 250.00 Diabetes Mellitus P.A. W/O Compl Type II Or Unspec Controlled 401.1 Hypertension Benign 726.19 Shoulder Disorders Other Spec 386.10 Vertigo Peripheral Unspec Office Visit 10/03/2011 4:15p Main Office Iona Tena MD 250.00 Diabetes Mellitus W/O Compl Type II Or Unspec Controlled 401.1 Hypertension Benign 278.01 Obesity Morbid 493.10 Asthma Intrinsic Unspecified 795.19 Other Abnormal Pap Smear Of Vagina And Vaginal HPV 110.1 Dermatophytosis Nail Office Visit 07/23/2011 11:00a Main Office Iona Tena MD 250.00 Diabetes Mellitus W/O Compl Type II Or Unspec Controlled 401.1 Hypertension Benign V76.19 Screening Breast Exam Malignant Neoplasms Other Office Visit 03/21/2011 10:00a Main Office Iona Tena MD 461.9 Sinusitis Acute Unspec 250.00 Diabetes Mellitus W/O Compl Type II Or Unspec Controlled 250.00 Diabetes Mellitus W/O Compl Type II Or Unspec Controlled 401.1 Hypertension Benign 278.01 Obesity Morbid V03.82 Streptococcus Pneumoniae Vaccination Spec Other V07.2 Prophylactic Immunotherapy Office Visit 12/17/2010 3:15p Main Office Irving Izquierdo 795.03 Pap Smear Cervix Frederic Bauer W/LGSIL 795.05 Cervical (HPV) Dna Positive Office Visit 11/15/2010 2:45p Main Office Iona Tean MD 401.1 Hypertension Benign 278.01 Obesity Morbid 250.00 Diabetes Mellitus W/O Compl Type II Or Unspec Controlled 272.0 Hypercholesterolemia Pure 733.90 Bone & Cartilage Disorder Unspec Office Visit 07/05/2010 11:15a Main Office Iona Tena MD 401.1 Hypertension Benign 493.10 Asthma Intrinsic Unspecified 278.01 Obesity Morbid Office Visit 06/11/2010 4:30p Main Office Irving Izquierdo 795.03 Pap Smear Cervix Frederic Bauer W/LGSIL Office Visit 06/05/2010 11:15a Main Office Iona Tena MD 401.1 Hypertension Benign 493.10 Asthma Intrinsic Unspecified 278.01 Obesity Morbid 719.42 Pain Joint Upper Arm 401.9 Hypertension Unspec 250.00 Diabetes Mellitus W/O Compl Type II Or Unspec Controlled Office Visit 05/17/2010 2:00p Main Office Irving Bauer, 796.73 Pap Smear Of M.D. Anus With LGSIL Office Visit 04/06/2010 3:25p Main Office Irving Bauer 795.03 Pap Smear Cervix M.D. W/LGSIL V76.2 Screening Malignant Neoplasm Cervix 795.00 Abnormal Glandular Pap Smear Office Visit 03/29/2010 9:15a Main Office Iona Tena MD V70.0 Examination General Medical Routine AT Health Care Facility V76.10 Screening For Malignant Neoplasm Breast 401.1 Hypertension Benign 278.01 Obesity Morbid 493.10 Asthma Intrinsic Unspecified 477.9 Rhinitis Allergic Cause Unspec 719.47 Pain Joint Ankle & Foot V76.51 Special Screening For Malignant Neoplasms Colon V72.31 Routine Invoice Checker Examination V06.1 Ygukrimtdi-Qgjfnhd-Buonoqcq Combined (DTaP) V07.2 Prophylactic Immunotherapy Office Visit 03/27/2009 5:15p Main Office Irving Izquierdo 462 Pharyngitis Acute Frederic Bauer Office Visit 02/28/2009 10:45a Main Office Iona Tena MD 786.2 Cough 493.10 Asthma Intrinsic Unspecified 278.01 Obesity Morbid Office Visit 02/21/2009 9:45a Main Office Iona Tena MD 786.2 Cough 493.10 Asthma Intrinsic Unspecified Office Visit 10/25/2008 10:45a Main Office Iona Tena MD 493.10 Asthma Intrinsic Unspecified 786.50 Pain Chest Unspec 733.90 Bone & Cartilage Disorder Unspec 278.01 Obesity Morbid Office Visit 10/11/2008 10:45a Main Office Iona Tena MD 493.10 Asthma Intrinsic Unspecified 786.50 Pain Chest Unspec 733.99 Bone & Cartilage Disorder Other Office Visit 09/02/2008 11:00a Main Office Ghislaine Flores MD 493.10 Asthma Intrinsic Unspecified 461.0 Sinusitis Acute Maxillary Office Visit 08/30/2008 9:30a Main Office Iona Tena MD 493.10 Asthma Intrinsic Unspecified 477.9 Rhinitis Allergic Cause Unspec 272.0 Hypercholesterolemia Pure 627.2 Menopausal Or Female Climacteric State, Symptomatic V76.51 Special Screening For Malignant Neoplasms Colon V76.19 Screening Breast Exam Malignant Neoplasms Other V82.81 Special Screening For Osteoporosis 401.1 Hypertension Benign 278.00 Obesity Unspec V87.49 Personal History Of Other Drug Therapy 784.49 Other Voice And Resonance Disorders Office Visit 05/28/2008 10:00a Main Office Irving Izquierdo 465.9 URI Upper Frederic Bauer Respiratory Infections Acute Unspec Sites 464.00 Acute Laryngitis, Without Mention Of Obstruction Office Visit 04/02/2007 9:15a Main Office Iona Tena MD 401.1 Hypertension Benign 493.10 Asthma Intrinsic Unspecified 477.9 Rhinitis Allergic Cause Unspec 272.0 Hypercholesterolemia Pure 276.8 Hypopotassemia 627.1 Postmenopausal Bleeding 569.3 Hemorrhage Rectum & Anus V76.10 Screening For Malignant Neoplasm Breast V72.31 Routine Invoice Checker Examination Office Visit 12/04/2006 4:00p Main Office damien 461.0 Sinusitis Acute Maxillary Office Visit 08/29/2006 11:30a Main Office damien 493.10 Asthma Intrinsic Unspecified Office Visit 05/15/2006 4:00p Main Office Iona Tena MD 786.2 Cough 493.10 Asthma Intrinsic Unspecified 477.9 Rhinitis Allergic Cause Unspec 401.1 Hypertension Benign Office Visit 04/03/2006 2:15p Main Office Iona Tena MD 493.10 Asthma Intrinsic Unspecified 477.9 Rhinitis Allergic Cause Unspec Office Visit 03/27/2006 4:45p Main Office Iona Tena 786.09 Dyspnea & MD Respiratory Abnormalities Other 493.10 Asthma Intrinsic Unspecified 477.9 Rhinitis Allergic Cause Unspec Office Visit 01/14/2006 8:55a Main Office Iona Tena MD 278.00 Obesity Unspec 493.10 Asthma Intrinsic Unspecified 401.1 Hypertension Benign 477.9 Rhinitis Allergic Cause Unspec 272.0 Hypercholesterolemia Pure V06.5 Tetanus Diphtheria (DT) V07.2 Prophylactic Immunotherapy V16.3 History Family Malignant Neoplasm Breast 627.2 Menopausal Or Female Climacteric State, Symptomatic Office Visit 12/19/2005 10:15a Main Office Iona Tena MD 493.10 Asthma Intrinsic Unspecified 477.9 Rhinitis Allergic Cause Unspec 401.1 Hypertension Benign 272.0 Hypercholesterolemia Pure 786.2 Cough V76.12 Screening Mammogram Malroger Patel Other Plan of Treatment 06/30/2018 - Sparkle Guerrero, PAZ00.00 Encounter for general adult medical examination without abnoComments:63 year old female. Screening updated.Follow up :physical in one yearZ12.4 Encounter for screening for malignant neoplasm of cervixComments:PAP done today. If normal, then next pap test should be in 3 years.E66.9 Obesity, unspecifiedComments:Discussed diet and exercise for weight loss.E11.9 Type 2 diabetes mellitus without complicationsComments:Recent A1C very good at 5.4%. Monitor.I10 Essential (primary) hypertensionComments:Good control on current meds, continue same.M54.5 Low back painComments:Discussed continuing OMM, also recommended gentle stretches, heat, massage, yoga. Recheck if sx not improving.B37.3 Candidiasis of vulva and vaginaNew Medication: Clotrimazole 2 % - apply externally to affected areas twice a day as neededComments:Rx for clotrimazole cream. Recheck if sx not improving.Z71.89 Other specified counseling
[2018-07-17 13:39] VITALS: BP 124/75
--- NOTE | 2018-07-17 14:05 | UC ---
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 She took ibuprofen PO yesterday to alleviate symptoms. Nothing today. She has Hx of back issues for which she sees the Chiropractor at times. Pain w/ sitting or walking is 8/10 today. Pt denies saddle anesthesia, urinary or fecal incontinence, urinary symptoms, numbness or tingling sensation over the lower extremities, SOB, chest pain, abdominal pain, N/v/D. - History of Current Complaint Chief Complaint: UCBackPain Stated Complaint: BACK INJURY Time Seen by Provider: 07/17/18 14:00 Hx Obtained From: Patient ?: No - menopausal Onset/Duration: Gradual Onset, Lasting Days - 1 day, Still Present, Worse Since - today pn the left side of lwoer back radiating to the left leg Timing: Intermittent Severity Initially: Moderate Severity Currently: Moderate Pain Intensity: 8 Pain Scale Used: 0-10 Numeric Back Pain: Is Discrete @ - left side of lower back, Radiates To - left leg Character: Dull, Aching, Spasmodic Aggravating Factor(s): Movement, Other - sitting Alleviating Factor(s): Rest, OTC Meds Associated Signs And Symptoms: Positive: Negative. Negative: Swelling, Redness , Bruising, Fever, Numbness, Tingling, Abdominal Pain, Flank Pain, Bladder Incontinence, Bowel Incontinence, Weight Loss, Pain with Weight Bearing, Other - Risk Factors AAA Risk Factors: Negative TAD Risk Factors: Negative Cauda Equina Risk Factors: Negative Epidural Abscess Risk Factors: Negative - Allergies/Home Medications Allergies/Adverse Reactions: Allergies Allergy/AdvReac Type Severity Reaction Status Date / Time Penicillins Allergy pass out Verified 07/17/18 13:40 Home Medications: Home Medications Pravastatin Sodium 20 mg PO DAILY 07/17/18 [History Confirmed 07/17/18] PMH/Surg Hx/FS Hx/Imm Hx Previously Healthy: Yes Endocrine History: Diabetes, Dyslipidemia Other Endocrine History: vittamin D defficiency Cardiovascular History: Hypertension Psychological History: Anxiety - Surgical History Surgical History: None Surgery Procedure, Year, and Place: TUBALIGATION. GALLBLADDER - Family History Family History: breast cancer and colon cancer - Social History Occupation: Employed Full-time Lives: With Family Alcohol Use: Occasionally Substance Use Type: None Smoking Status (MU): Never Smoked Tobacco Review of Systems All Other Systems Reviewed And Are Negative: Yes Constitutional: Positive: Negative Skin: Positive: Negative Eyes: Positive: Negative ENT: Positive: Negative Respiratory: Positive: Negative Cardiovascular: Positive: Negative Gastrointestinal: Positive: Negative Genitourinary: Positive: Negative Motor: Positive: Negative Neurovascular: Positive: Negative Musculoskeletal: Positive: Decreased ROM - lower back, Other: - acute lower back pain s/p heavy lifting Neurological: Positive: Negative Psychological: Positive: Negative Is Patient Immunocompromised?: No Physical Exam - Summary Physical Exam Summary: Vital Signs Reviewed: Yes Appearance: Well-Appearing, Well-Nourished, obese female sitting in the examining table w/o any apparent distress. Eyes: Positive: Conjunctiva Clear - PERRLA, EOMI. ENT: Positive: Normal ENT inspection, Hearing grossly normal, Pharynx normal, TMs normal, Uvula midline Neck: Positive: Supple, Nontender, No Lymphadenopathy Respiratory: Positive: Chest non-tender, Lungs clear, Normal breath sounds, No respiratory distress Cardiovascular: Positive: RRR, No Murmur, Pulses Normal, Brisk Capillary Refill Abdomen Description: Positive: Nontender, No Organomegaly, Soft. Negative: CVA Tenderness (R), CVA Tenderness (L) Bowel Sounds: Positive: Present Musculoskeletal: Positive: Strength Intact, Other: - BACK: Patient walked into the urgent care room with symmetric ambulation, No signs of limping, antalgic, able to bear weight. No signs of trauma, No masses palpated. Point tenderness at the level of L5-S1, No CVAT, no flank ecchymosis . No sacroiliac notch tenderness, No saddle anesthesia.ROM: limited due to pain, Straight Leg Raise: negative. Patellar reflexes: brisk, symmetric Muscle strength lower extremities. Dorsiflexion/ plantar flexion of ankles. Heel/ toe walk. Lower extremities: Femoral, popliteal, posterior tibial, and dorsalis pedis pulses WNL. 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 She took ibuprofen PO yesterday to alleviate symptoms. Nothing today. She has Hx of back issues for which she sees the Chiropractor at times. Pain w/ sitting or walking is 8/10 today. Pt denies saddle anesthesia, urinary or fecal incontinence, urinary symptoms, numbness or tingling sensation over the lower extremities, SOB, chest pain, abdominal pain, N/v/D. Hx obtained. PE: Point tenderness at the level of the L4-S1 and left paraspinal muscle spasm at the same level on examination. Lumbosacral X-ray ordered, Impression: No acute osseous injury observed, osteroarthritis and degenerqative disc disease at L4- L5 and L5-S1. Pt given Ibuprofen PO ordered at the clinic. Given by nurse. Pt tolerated well medication pain decrease. Pt Rx Naproxen PO, flexeril PO. Patient was instructed to f/u wit orthopedic Dr Licona in 1 week if symptoms do not improve or worsen. Patient understands and agrees. Patient is able to ambulate freely w/o aid or limp. Plan of care was discussed with the patient and patient understands and agrees. All questions were answered at patient satisfaction. Pt left clinic hemodynamically stable. - Differential Dx/Diagnosis Differential Diagnosis/HQI/PQRI: Arthritis, Herniated Disc, Renal Colic, Strain , Sprain Provider Diagnoses: 1- Acute lower back strain s/p heavy lifting. 2- Muscle spasm. 3-Degenerative disc disease Discharge - Sign-Out/Discharge Documenting (check all that apply): Patient Departure - d/c home All imaging exams completed and their final reports reviewed: Yes - Discharge Plan Condition: Stable Disposition: HOME Prescriptions: Cyclobenzaprine TAB* [Flexeril 10 MG TAB*] 10 mg PO TID PRN #21 tab PRN Reason: Spasms - Back Naproxen TAB* [Naprosyn 250 mg TAB*] 250 mg PO Q8H PRN #30 tab PRN Reason: back pain Patient Education Materials: Low Back Strain (ED), Muscle Spasm (ED), Degenerative Disc Disease (ED) Forms: *Work Release Referrals: Dank Licona MD [Medical Doctor] - 1 Week Hakeem Brewster DO [Primary Care Provider] - 1 Week Additional Instructions: 1- Please take Naproxen PO as directed after meals for pain. 2- Take Flexeril PO as directed for muscle spasm. Please do not drive while taking the medication. 3- Wear a back support. Avoid strenuous exercise or heavy lifting. 4- Please follow up with Orthopedic Dr Licona or your PCP in 1 week if not improvement of symptoms, for further management. - Billing Disposition and Condition Condition: STABLE Disposition: Home
[2018-07-17] MEDS ORDERED: Ibuprofen TAB* 400 MG PO ONE (14:13)
== END 2018-07-17 15:14 | disposition home or self-care (01) ==
LOC: UCEAST 13:23
DX: S39.012A Strain of muscle, fascia and tendon of lower back, initial encounter (principal); M62.838 Other muscle spasm; M51.37 Other intervertebral disc degeneration, lumbosacral region; E11.9 Type 2 diabetes mellitus without complications; E78.00 Pure hypercholesterolemia, unspecified; I10 Essential (primary) hypertension; Z88.0 Allergy status to penicillin; Z79.899 Other long term (current) drug therapy; X50.0XXA Overexertion from strenuous movement or load, initial encounter; Y92.9 Unspecified place or not applicable
CPT/HCPCS: 72110; 99212; A9270-GY; G0463

== ENCOUNTER 2018-08-19 17:02 | Emergency (ER) | payer BC, OTHER ==
--- NOTE | 2018-08-19 17:09 | UC ---
Dizzy HPI HPI Summary: The patient is a 63-year-old female who onset of mild occipital headache and right arm paresthesias after she stretched at work. She went and saw her nurse at work and her blood pressure was found to be elevated. She states it was about 170/90 at that point. She has some mild dizziness when she turns her head from side to side. She states that she feels much better now. The onset of these symptoms were about 4 PM. Currently she feels some generalized weakness. Very mild right arm paresthesias. And a mild occipital headache. She denies any chest pain or shortness of breath. She attributes her symptoms to a possible pinched nerve in her neck. History of hypertension and dyslipidemia. - History Of Current Complaint Stated Complaint: HBP Time Seen by Provider: 08/19/18 17:05 Hx Obtained From: Patient Onset/Duration: Sudden Onset Timing: Constant Severity Initially: Moderate Severity Currently: Mild Pain Intensity: 3 Pain Scale Used: 0-10 Numeric Character: Weak, Dizzy Aggravating Factor(s): Headache - mild occipital Alleviating Factor(s): Lying Down Associated Signs And Symptoms: Positive: Unsteady Gait - due to weakness. Negative: Nausea, Vomiting, Diaphoresis, Tinnitus, Chest Pain, SOB, Palpitations , Visual Changes, Decreased Oral Intake, Change In Medication, Change In Diet, OTC Medications - Risk Factors Cardiac Risk Factors: Hypertension, Elevated Lipids - Allergies/Home Medications Allergies/Adverse Reactions: Allergies Allergy/AdvReac Type Severity Reaction Status Date / Time Penicillins Allergy pass out Verified 08/19/18 17:13 PMH/Surg Hx/FS Hx/Imm Hx Previously Healthy: Yes Endocrine History: Dyslipidemia Cardiovascular History: Hypertension Respiratory History: Asthma - Surgical History Surgical History: None Surgery Procedure, Year, and Place: TUBALIGATION. GALLBLADDER - Family History Known Family History: Positive: Unknown - Parents young. To her knowledge, no htn, dm, heart dz. Family History: breast cancer and colon cancer - Social History Alcohol Use: Occasionally Substance Use Type: None Smoking Status (MU): Never Smoked Tobacco Review of Systems All Other Systems Reviewed And Are Negative: Yes Constitutional: Positive: Negative Skin: Positive: Negative Eyes: Positive: Negative ENT: Positive: Negative Respiratory: Positive: Negative Cardiovascular: Positive: Negative Gastrointestinal: Positive: Negative Genitourinary: Positive: Negative Motor: Positive: Negative Neurovascular: Positive: Negative Musculoskeletal: Positive: Negative Neurological: Positive: Headache, Paresthesia - right arm Psychological: Positive: Anxious Physical Exam Triage Information Reviewed: Yes Appearance: Well-Appearing, No Pain Distress, Well-Nourished Vital Signs: 180/90, 84. [id number]% Vital Signs Reviewed: Yes Eyes: Positive: Conjunctiva Clear, Other: - eomi/perrl,no nystagmus ENT: Positive: Hearing grossly normal. Negative: Nasal congestion, Nasal drainage, Trismus, Muffled voice, Hoarse voice Neck: Positive: Supple, Nontender, Other: - no bruit Respiratory: Positive: Lungs clear, Normal breath sounds, No respiratory distress, No accessory muscle use Cardiovascular: Positive: RRR, No Murmur Musculoskeletal: Positive: ROM Intact, No Edema Neurological: Positive: Alert, Other: - cn2-12 intact, strentght 5/5, no pronator drift, gait not tested, no dysarthria or aphasia Psychological Exam: Normal Diagnostics - EKG Cardiac Rate: NL Cardiac Rhythm: Sinus: Normal Ectopy: None ST Segment: Normal EKG Comparison: No Significant Change - since 2009 Summary of EKG Findings: qs inferiorly , unchaged from 2009 National Institutes Of Health - NIH Scale Level of Consciousness: Alert/Keenly Responsive Ask Patient the Month and His/Her Age: Both Correct Ask Pt to Open/Close Eyes and Cross Tie Maker/Release Non-Paretic Hand: Both Correctly Best Gaze (Only Horizontal Eye Movement): Normal Visual Field Testing: No Visual Loss Facial Paresis-Pt to Smile & Close Eyes or Grimace Symmetry: Normal/Symmetrical Motor Function - Right Arm: No Drift-Holds 10 Seconds Motor Function - Left Arm: No Drift-Holds 10 Seconds Motor Function - Right Leg: No Drift-Holds 10 Seconds Motor Function - Left Leg: No Drift-Holds 10 Seconds Limb Ataxia-Must be out of Proportion to Weakness Present: Absent Best Language (Describe Picture, Name Items): No Aphasia Dysarthria (Read Several Words): Normal Extinction and Inattention: No Abnormality Dizzy Course/Dx - Course Course Of Treatment: to [facility] [place] [facility] via EMS - Differential Dx/Diagnosis Provider Diagnosis: Hypertension, Dizziness after extension of neck, Arm paresthesia, right Discharge - Sign-Out/Discharge Documenting (check all that apply): Patient Departure All imaging exams completed and their final reports reviewed: No Studies - Discharge Plan Condition: Stable Disposition: TRANS HIGHER LVL OF CARE FAC Referrals: Hakeem Brewster DO [Primary Care Provider] - - Billing Disposition and Condition Condition: STABLE Disposition: Trans Higher Lvl of Care Fac
[2018-08-19 17:20] VITALS: BP 162/79
== END 2018-08-19 18:01 | disposition short-term general hospital (02) ==
LOC: UCEAST 17:02
DX: I10 Essential (primary) hypertension (principal); R42 Dizziness and giddiness; R20.2 Paresthesia of skin; Z88.0 Allergy status to penicillin
CPT/HCPCS: 93005; 99213; G0463

== ENCOUNTER 2018-08-19 18:16 | Emergency (ER) | payer BC ==
[2018-08-19] MEDS ORDERED: Metoclopramide IV* 5 MG/ML 2 ML VIAL IV SLOW PU ONE (19:14)
[2018-08-19] MEDS ORDERED: diPHENhydraMINE IV* 50 MG/ML 1 ml VIAL (BENADRYL) SLOW PUSH ONE (19:14)
--- NOTE | 2018-08-19 19:18 | ED ---
Headache - HPI Summary HPI Summary: Patient is a 63 y/o F presenting to ED with complaints of frontal PALACIOS and neck pain suddenly onsetting today at 1600. 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 Patient notes that she turned her head and she began to experience "pounding" PALACIOS and a "burning" sensation at right side of neck with radiation to right arm. She also notes some photophobia and nausea. She denies tingling, weakness, numbness, double vision, blurred vision, and ringing in ears. PMHx of HTN, FMHx of colon cancer. Patient is on daily ASA. , who is present in the room, notes that patient has a high-stress job and is on medications for anxiety. Fever, chills, erythema of eyes, sore throat, chest pain, SOB, cough, abdominal pain, vomiting, dysuria, hematuria, myalgia, edema, rash and dizziness are not reported. On triage, pain is rated 8/10, nothing is noted to aggravate/ alleviate Sx. Home medications and allergies are reviewed. - History Of Current Complaint Chief Complaint: EDNeckComplaint Stated Complaint: HIGH BLOOD PRESSURE Time Seen by Provider: 08/19/18 18:37 Hx Obtained From: Patient Hx Last Menstrual Period: POST Onset/Duration: Sudden Onset, Started hours ago - 1600 today, Still Present Initially Headache Was: Severe - 8/10 Currently Pain Is: Severe - 8/10 Timing: Constant, Hours - 1600 onset Character: Pressure Location of Headache: Frontal Aggravating Factor: Nothing Allevating Factors: Nothing Associated Signs And Symptoms: Nausea, Other (Noted In Comments) - She denies tingling, weakness, numbness, double vision, blurred vision, and ringing in ears pounding" PALACIOS and a "burning" sensation at right side of neck with radiation to right arm, some photophobia. Fever, chills, erythema of eyes, sore throat, chest pain, SOB, cough, abdominal pain, vomiting, dysuria, hematuria, myalgia, edema, rash and dizziness are not reported. - Allergies/Home Medications Allergies/Adverse Reactions: Allergies Allergy/AdvReac Type Severity Reaction Status Date / Time Penicillins Allergy pass out Verified 08/19/18 18:28 PMH/Surg Hx/FS Hx/Imm Hx Endocrine/Hematology History: Reports: Hx Diabetes - CONTROLLED WITH DIET AND EXERCISE Denies: Hx Thyroid Disease Cardiovascular History: Reports: Hx Hypertension Denies: Hx Pacemaker/ICD Respiratory History: Reports: Hx Asthma Denies: Hx Chronic Obstructive Pulmonary Disease (COPD) GI History: Denies: Hx Ulcer History: Denies: Hx Renal Disease Sensory History: Denies: Hx Hearing Aid Psychiatric History: Denies: Hx Panic Disorder - Cancer History Hx Chemotherapy: No Hx Radiation Therapy: No - Surgical History Surgery Procedure, Year, and Place: TUBALIGATION. GALLBLADDER Infectious Disease History: No Infectious Disease History: Denies: Hx Clostridium Difficile, Hx Hepatitis, Hx Human Immunodeficiency Virus (HIV), Hx of Known/Suspected MRSA, Hx Shingles, Hx Tuberculosis, Hx Known/ Suspected VRE, Hx Known/Suspected VRSA, History Other Infectious Disease, Traveled Outside the [place] in Last 30 Days - Family History Known Family History: Positive: Other - breast cancer and colon cancer Family History: breast cancer and colon cancer - Social History Alcohol Use: Daily Substance Use Type: Reports: None Smoking Status (MU): Never Smoked Tobacco Review of Systems Negative: Fever, Chills Eyes: Other - NEGATIVE - BLURRED VISION Positive: Photophobia. Negative: Blurred Vision, Erythema ENT: Other - NEGATIVE - RINGING IN EARS Negative: Sore Throat Negative: Chest Pain Negative: Shortness Of Breath, Cough Positive: Nausea. Negative: Abdominal Pain, Vomiting Negative: dysuria, hematuria Positive: Other - POSITIVE - NECK PAIN AND RIGHT ARM PAIN . Negative: Myalgia, Edema Negative: Rash Neurological: Other - NEGATIVE - TINGLING, DIZZINESS Positive: Headache. Negative: Weakness, Numbness All Other Systems Reviewed And Are Negative: Yes Physical Exam - Summary Physical Exam Summary: Constitutional: Well-developed, Well-nourished, Alert. (-) Distressed Skin: Warm, Dry HENT: Normocephalic; Atraumatic Eyes: Conjunctiva normal Neck: Musculoskeletal ROM normal neck. (-) JVD, (-) Stridor, (-) Tracheal deviation Cardio: Rhythm regular, rate normal, Heart sounds normal; Intact distal pulses; The pedal pulses are 2+ and symmetric. Radial pulses are 2+ and symmetric. (-) Murmur Pulmonary/Chest wall: Effort normal. (-) Respiratory distress, (-) Wheezes, (-) Rales Abd: Soft, (-) epigastric tenderness, (-) Distension, (-) Guarding, (-) Rebound Musculoskeletal: (-) Edema (+) Mildly reduced neck rotation with lateral movement. Lymph: (-) Cervical adenopathy Neuro: Alert, Oriented x3 Psych: Mood and affect Normal Triage Information Reviewed: Yes Vital Signs On Initial Exam: Initial Vitals Temp Pulse Resp BP Pulse Ox 98.5 F 79 22 144/85 96 08/19/18 18:20 08/19/18 18:20 08/19/18 18:20 08/19/18 18:20 08/19/18 18:20 Vital Signs Reviewed: Yes Diagnostics - Vital Signs Vital Signs Temp Pulse Resp BP Pulse Ox 08/19/18 18:26 82 18 144/85 95 08/19/18 18:22 84 96 08/19/18 18:20 98.5 F 79 22 144/85 96 - Laboratory Result Diagrams: 08/19/18 17:40 08/19/18 17:40 Lab Statement: Any lab studies that have been ordered have been reviewed, and results considered in the medical decision making process. - CT BRAIN CT CT Interpretation Completed By: Radiologist Summary of CT Findings: BRAIN CT IMPRESSION: No acute intracranial pathology. THIS REPORT WAS REVIEWED BY ED PHYSICIAN. HEAD CTA CT Interpretation Completed By: Radiologist Summary of CT Findings: HEAD CTA IMPRESSION: No acute findings. THIS REPORT WAS REVIEWED BY ED PHYSICIAN. Re-Evaluation - Re-Evaluation First Eval Re-Evaluation Time: 22:05 Change: Improved Comment: Patient states that she is feeling much better. Results of labs, tests and plan of treatment discussed. She will be discharged to home and follow up with PCP, she is agreeable with this. Headache Course/Dx - Course Course Of Treatment: Patient is a 63 y/o F presenting to ED with complaints of frontal PALACIOS and neck pain suddenly onsetting today at 1600. 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 Patient notes that she turned her head and she began to experience "pounding" PALACIOS and a "burning" sensation at right side of neck with radiation to right arm. She also notes some photophobia and nausea. She denies tingling, weakness, numbness, double vision, blurred vision, and ringing in ears. PMHx of HTN, FMHx of colon cancer. Patient is on daily ASA. , who is present in the room, notes that patient has a high- stress job and is on medications for anxiety. On physical exam, mildly reduced neck rotation with lateral movement. Labs showed potassium 3.3, chloride 100, BUN/creatinine 23.8, glucose 101. During ED course, patient received fluids, reglan 10 mg IV, Benadryl [address] IMPRESSION: No acute intracranial pathology. HEAD CTA IMPRESSION: No acute findings. Patient had no neurologic deficits, Brain CT is nearly 100% sensitive for subarachnoid hemorrhage and was negative. No aneurysm on Head CTA. Plan will be for treatment with muscle relaxants, heat pad, anti-inflammatories. This was discussed with patient, she is agreeable with discharge. - Diagnoses Provider Diagnoses: Cervicogenic headache Discharge - Sign-Out/Discharge Documenting (check all that apply): Patient Departure - discharge - Discharge Plan Condition: Stable Disposition: HOME Patient Education Materials: Acute Headache (ED) Referrals: Hakeem Brewster DO [Primary Care Provider] - 2 Days Additional Instructions: RETURN TO THE EMERGENCY DEPARTMENT FOR CHANGING OR WORSENING SYMPTOMS. FOLLOW UP WITH PRIMARY CARE PHYSICIAN IN 2 DAYS. - Attestation Statements Document Initiated by Scribe: Yes Documenting Scribe: ROSA MARIA SOTO Provider For Whom Scribe is Documenting (Include Credential): MICHAEL WINTERS MD Scribe Attestation: ROSA MARIA Nicole , scribed for MICHAEL WINTERS MD on 08/19/18 at [id number]. Status of Scribe Document: Ready
[2018-08-19 19:25] LABS: Hematocrit 44 % (35-47); Hemoglobin 15.2 g/dl (12.0-16.0); Mean Corpuscular HGB Conc 34 g/dl (31-36); Mean Corpuscular Hemoglobin 31 pg (27-31); Mean Corpuscular Volume 90 fL (80-97); Mean Platelet Volume 8.6 fL (7.4-10.4); Platelet Count 250 10^3/ul (150-450); Red Blood Count 4.92 10^6/ul (4.00-5.40); Red Cell Distribution Width 13 % (10.5-15); White Blood Count 7.9 10^3/ul (3.5-10.8)
[2018-08-19] MEDS ORDERED: diPHENhydraMINE PO* 25 MG PO ONE (19:28)
[2018-08-19 19:40] LABS: Albumin 4.5 g/dL (3.2-5.2); Albumin/Globulin Ratio 1.7 (1-3); BUN/Creatinine Ratio 23.8 (8-20); C Reactive Protein 2.2 mg/L (<8.01); Calcium 9.4 mg/dL (8.6-10.3); EGFR Non-African American 68.9 (>60); Globulin 2.6 g/dL (2-4); Potassium 3.3 mmol/L (3.5-5.0); Total Bilirubin 0.4 mg/dL (0.2-1.0); Total Protein 7.1 g/dL (6.4-8.9)
[2018-08-19] MEDS ORDERED: NS 0.9% 1000 ML* 1,000 ML IV ONE (20:09)
[2018-08-19] MEDS ORDERED: Iodixanol* (CONTRAST) 320 MG/ML 100 ML SDV IV ONE (20:15)
[2018-08-19] MEDS ORDERED: Ketorolac INJ* 30 MG/ML 1 ML VIAL IV PUSH ONE (22:06)
[2018-08-19] MEDS ORDERED: Diazepam TAB(*) 5 MG PO ONE (22:06)
[2018-08-19 22:32] VITALS: BP 148/78
== END 2018-08-19 22:31 | disposition home or self-care (01) ==
LOC: ED 18:16
DX: G44.84 Primary exertional headache (principal); F41.9 Anxiety disorder, unspecified; Z79.82 Long term (current) use of aspirin; E11.9 Type 2 diabetes mellitus without complications; I10 Essential (primary) hypertension; Z88.0 Allergy status to penicillin
CPT/HCPCS: 36415; 70450; 70496; 80053; 85027; 86140; 96361; 96374; 96375; 99282; A9270-GY; J1885; J2765; Q9967